=== PATIENT | female | born 1970 | race Caucasian/White ===

== ENCOUNTER 2019-05-30 21:43 | Emergency (ER) | payer SELFPAY ==
[~2019-05-30] VITALS: Ht 162.6 cm; Wt 81.6 kg
[~2019-05-30 21:43] MED LIST: ALPR0.5T6 PO; CALCIUM; CHOL10003 PO; CYCL10TA2 PO; FENT1PAT13 TD; FLUO10CA7 PO; LORA10TA3 PO; NAPR500T8 PO; OMEG1CAP6 PO; TIOT18CA IH; TRAM50TA PO; VARE1TAB5 PO; VITAMIN D; cetirizine; cholestoff; lexapro; naproxen
[2019-05-30 22:15] VITALS: BP 112/68
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
[2019-05-30] MEDS ORDERED: HYDR-3164 PO (23:40)
[2019-05-30] MEDS ORDERED: ORPH100T PO (23:40)
--- NOTE | 2019-05-30 23:43 | RAD ---
Three-view left shoulder radiographs 05/30/2019 CLINICAL HISTORY: Injury to the left shoulder post fall. AP internal and external rotation and transscapular digital radiographs left shoulder were obtained. No fracture or dislocation of the left shoulder is seen. Mild degenerative changes are seen involving the left AC joint and left glenohumeral joint. IMPRESSION: No fracture or dislocation of the left shoulder is seen. Electronically signed by: Rudy James MD (05/30/2019 11:40 PM) [facility] [id number]
--- NOTE | 2019-05-30 23:50 | RAD ---
Bilateral rib series to include a PA chest radiograph 05/30/2019 CLINICAL HISTORY: Fall with chest and rib pain. A PA digital radiograph of the chest was obtained. 2 AP and 2 oblique digital radiographs of both ribs were obtained. Comparison is made to a CT scan of the chest dated 01/01/2015. The cardiac silhouette is mildly enlarged. The thoracic aorta is minimally tortuous. No acute pulmonary infiltrate is seen. No pleural effusion or pneumothorax is noted No right-sided rib fracture is seen. Acute fractures of the anterolateral aspect of the left seventh and eighth ribs are seen. IMPRESSION: Acute fractures of the anterolateral aspect of the left seventh and eighth ribs. No pneumothorax is seen. Electronically signed by: Rudy James MD (05/30/2019 11:47 PM) [facility]
== END 2019-05-30 23:50 | disposition home or self-care (01) ==
LOC: ER 21:43
DX: R07.81 Pleurodynia (principal); M25.512 Pain in left shoulder; M19.90 Unspecified osteoarthritis, unspecified site; F32.9 Major depressive disorder, single episode, unspecified; Z98.890 Other specified postprocedural states; Z90.710 Acquired absence of both cervix and uterus; W18.39XA Other fall on same level, initial encounter; Y93.89 Activity, other specified; Y92.89 Other specified places as the place of occurrence of the external cause; Y99.8 Other external cause status
CPT/HCPCS: 71111; 73030; 99284

== ENCOUNTER → 2019-06-10 | Outpatient (CLI) | payer OTHER ==
[2019-05-30 22:15] VITALS: BP 112/68
[~2019-06-10] MED LIST changes: +HYDR-3164 PO; +ORPH100T PO
--- NOTE | 2019-06-10 17:15 | RAD ---
LEFT LEG VENOUS DOPPLER STUDY: Clinical indications: Left leg swelling and pain. Findings: Duplex sonography (including olvera scale evaluation and color flow and waveform spectral analysis) of the proximal aspect of the greater saphenous vein and the proximal aspect of the profunda femoral vein and the entire length of the common femoral and superficial femoral and popliteal veins and the tibioperoneal trunk and the proximal aspect of the posterior tibial and peroneal veins of the left leg was performed. Normal compressibility, augmentation of color Doppler flow after calf compression, and respiratory variation of Doppler flow is seen. Thus, there are no sonographic findings of deep venous thrombosis within these veins. Impression: There are no sonographic findings of deep venous thrombosis within the veins discussed above of the left lower extremity. RIGHT LEG VENOUS DOPPLER STUDY: Clinical indications: Right leg swelling and pain. Findings: Duplex sonography (including olvera scale evaluation and color flow and waveform spectral analysis) of the proximal aspect of the greater saphenous vein and proximal aspect of the profunda femoral vein and the entire length of the common femoral and superficial femoral and popliteal veins and the tibioperoneal trunk and the proximal aspect of the posterior tibial and peroneal veins of the right leg was performed. Normal compressibility, augmentation of color Doppler flow after calf compression, and respiratory variation of Doppler flow is seen. Thus, there are no sonographic findings of deep venous thrombosis within these veins. Impression: There are no sonographic findings of deep venous thrombosis within the veins discussed above of the right lower extremity. Electronically signed by: Anthony Freitas MD (06/10/2019 5:12 PM) [facility]
== END | disposition home or self-care (01) ==
LOC: US 16:15
PROVIDERS: ATTEND Family Medicine
DX: M79.89 Other specified soft tissue disorders (principal)
CPT/HCPCS: 93970

== ENCOUNTER 2019-07-02 14:46 | Inpatient (IN) | payer OTHER ==
[~2019-07-02] VITALS: Ht 162.6 cm; Wt 80.3 kg
[2019-07-02 15:00] VITALS: BP 131/71
[2019-07-02] MEDS ORDERED: NAPR-514 PO (16:25)
[2019-07-02 16:43] LABS: HEMATOCRIT 39.4 % (36.0-47.0); HEMOGLOBIN 12.3 g/dL (12.0-15.5); RED BLOOD COUNT 5.38 x10^6/uL (3.50-5.40); WHITE BLOOD COUNT 8.8 x10^3/uL (4.0-11.0)
[2019-07-02 16:58] LABS: CALCIUM 9.2 mg/dL (8.5-10.1); CREATININE 0.8 mg/dL (0.6-1.0); GFR 75.9; MAGNESIUM 1.9 mg/dL (1.8-2.4); POTASSIUM 4.2 mmol/L (3.5-5.1)
[2019-07-02] MEDS ORDERED: FUROSEMIDE 40 MG/4 ML VIAL. IVP ONE (17:15)
--- NOTE | 2019-07-02 17:23 | PDOC ---
STEWART IRIZARRY DIRECTOR OF FRONT OFFICE 07/02/19 1723: CARDIO Progress Notes Date and Time Date of Service 07/02/19 Time of Evaluation 1700 Subjective Subjective: Other (cough, LE edema. SOA comes and goes ) Vitals Vitals Vital Signs Date Time Temp Pulse Resp B/P (MAP) Pulse Ox O2 Delivery O2 Flow Rate FiO2 07/02/19 15:00 98.8 102 18 131/71 (91) 90 Room Air 98.8 Weight Weight [ ] Laboratory Labs Laboratory Tests Test 07/02/19 16:30 White Blood Count 8.8 x10^3/uL (4.0-11.0) Red Blood Count 5.38 x10^6/uL (3.50-5.40) Hemoglobin 12.3 g/dL (12.0-15.5) Hematocrit 39.4 % (36.0-47.0) Mean Corpuscular Volume 73 fL (79-100) Mean Corpuscular Hemoglobin 23 pg (25-35) Mean Corpuscular Hemoglobin Concent 31 g/dL (31-37) Red Cell Distribution Width 19.0 % (11.5-14.5) Platelet Count 207 x10^3/uL (140-400) Sodium Level 145 mmol/L (136-145) Potassium Level 4.2 mmol/L (3.5-5.1) Chloride Level 103 mmol/L (98-107) Carbon Dioxide Level 33 mmol/L (21-32) Anion Gap 9 (6-14) Blood Urea Nitrogen 19 mg/dL (7-20) Creatinine 0.8 mg/dL (0.6-1.0) Estimated GFR (Cockcroft-Gault) 75.9 Glucose Level 101 mg/dL (70-99) Calcium Level 9.2 mg/dL (8.5-10.1) Magnesium Level 1.9 mg/dL (1.8-2.4) Troponin I Quantitative 0.018 ng/mL (0.000-0.055) Physical Exam HEENT: Neck Supple W Full Motion Chest: Symmetric LUNGS: Clear to Auscultation Heart: S1S2, RRR, murmurs (2/6 systolic murmur ) Abdomen: Soft N/T Extremities: Other (1-2+ bilateral LE edema. Mild bilateral LE erythema) Neurology: alert, oriented, follow commands Assessment Assessment Reason for consult: CHF HPI: This is a 48 yo female who was seen in our [place] office by Dr. Weems yesterday with complaints of LE edema. Please seen office note in physical maryam for full details. Has been experiencing worsening exertional dyspnea and chest pressure over the last several weeks. Has also has worsening LE edema, that has not improved significantly improved with diuretic therapy. Hospitalization with aggressive management with right and left heart catheterization and pulmonary evaluation versus outpatient management with di uretics and echocardiogram was discussed. Patient opted to be admitted to the hospital today for aggressive diuresis, echocardiogram, and right and left heart cath for further evaluation of symptoms. Assessment 1. Acute on chronic probable diastolic HF 2. Chest pressure, exertional dyspnea. ? CAD component 3. Hypertension 4. Hyperlipidemia 5. Tobaccoism; discussed/encouraged cessation Recommendations Diuresis Echo to assess LV systolic function Routine labs; CBC, BMP, lipids, coags CXR EKG R and L heart cath in am. R/b/a discussed and patient is agreeable. NPO p MN NICOLLE WEEMS MD 07/02/19 2204: CARDIO Progress Notes Plan Plan Pt. seen and examined. Agree with above PRESSURE STEAMER TENDER note. Admitted for acute on chronic presumed diastolic HF with unstable angina. STEWART IRIZARRY APRN Jul 02, 2019 17:23 NICOLLE WEEMS MD Jul 02, 2019 22:04
--- NOTE | 2019-07-02 17:39 | RAD ---
PORTABLE CHEST 1V Clinical indications: Shortness of breath. COMPARISON: May 30, 2019. Findings: Chronic elevation of the right hemidiaphragm is seen. Mild chronic interstitial lung disease is seen bilaterally which is stable. No new lung infiltrate or pleural effusion or pneumothorax is evident. The heart size is prominent but stable. The mediastinum is unchanged. Prominent central pulmonary vasculature is seen especially involving the right infrahilar region which may be due to chronic arterial pulmonary hypertension. This is stable. IMPRESSION: Stable chest x-ray. Electronically signed by: Anthony Freitas MD (07/02/2019 5:37 PM) [id number]
[2019-07-02 18:00] LABS: PROTHROMBIN TIME PATIENT 12.7 SEC (11.7-14.0)
--- NOTE | 2019-07-02 18:04 | EKG ---
[facility] [address] [place] [address] Test Date: 2019-07-02 Test Time: 18:59:25 Pat Name: GAYATRI ESPINOZA Department: Room: 244 Gender: F Tenant Relations Coordinator: : 1970 Requested By: STEWART IRIZARRY Order Number: [id number] Reading MD: Raghavendra Weems MD Measurements Intervals [place] Rate: 99 P: 62 UT: 164 QRS: 84 QRSD: 90 T: 23 QT: 356 QTc: 462 Interpretive Statements SINUS RHYTHM NON-SPECIFIC ST/T CHANGES Electronically Signed On 07-14-2019 14:05:41 CDT by Raghavendra Weems MD
[2019-07-02 19:18] VITALS: BP 151/78
--- NOTE | 2019-07-02 20:32 | HP ---
ADMIT DATE: 07/02/2019 CHIEF COMPLAINT: Shortness of breath and edema. HISTORY OF PRESENT ILLNESS: The patient is a pleasant middle-aged female who smokes too much. She has never had any cardiac problems that she is aware of, but now she presents with signs of heart failure. She is short of breath. She has got swelling, she has got associated cough that has been worsening for the past few weeks. Her chest x-ray shows some vascular congestion. Her BNP level was a little high at 776. I discussed the case with the ER physician. We are going to admit the patient with heart failure and consult Cardiology. PAST MEDICAL HISTORY: Tobacco abuse, allergic rhinitis, asthma, muscle spasms, arthritis, chronic pain, depression, anxiety. ALLERGIES: None. FAMILY HISTORY: Hypertension. SOCIAL HISTORY: She smokes. No drink or drugs. She works at the [employer]. MEDICATIONS: Reviewed, please refer to the MRAD. REVIEW OF SYSTEMS: GENERAL: No history of weight change, weakness or fevers. SKIN: No bruising, hair changes or rashes. EYES: No blurred, double or loss of vision. NOSE AND THROAT: No history of nosebleeds, hoarseness or sore throat. HEART: No history of palpitations, chest pain or shortness of breath on exertion. LUNGS: She complains of shortness of breath. GASTROINTESTINAL: Denies changes in appetite, nausea, vomiting, diarrhea or constipation. GENITOURINARY: No history of frequency, urgency, hesitancy or nocturia. NEUROLOGIC: Denies history of numbness, tingling, tremor or weakness. PSYCHIATRIC: No history of panic, anxiety or depression. ENDOCRINE: No history of heat or cold intolerance, polyuria or polydipsia. EXTREMITIES: She complains of edema. PHYSICAL EXAMINATION: VITALS: Within normal limits and are stable. GENERAL: No apparent distress. Alert and oriented. HEENT: Head is normocephalic, atraumatic, pupils were equally round and reactive to light and accommodation. NECK: Supple, no JVD, no thyromegaly was noted. LUNGS: She has decreased breath sounds. HEART: RRR, S1, S2 present. Peripheral pulses intact, no obvious murmurs were noted. ABDOMEN: Soft, nontender. Positive bowel sounds no organomegaly, normal bowel sounds. EXTREMITIES: She has 1+ edema. NEUROLOGIC: Normal speech, normal tone. A & O x3, moves all extremities, no obvious focal deficits. PSYCHIATRIC: Normal affect, normal mood. Stable. SKIN: No ulcerations or rashes, good skin turgor, no jaundice. VASCULAR: Good capillary refill, neurovascular bundle appears to be intact. LABORATORY DATA: Normal. Electrolytes are normal. Troponin is 0.018. BNP 776. Chest x-ray shows some vascular congestion. ASSESSMENT AND PLAN: Acute on chronic systolic and diastolic heart failure. The patient is being admitted. We will consult Cardiology. IV Lasix, cardiac monitoring, serial enzymes, serial EKGs, echocardiogram, DVT prophylaxis. Full code. PROGNOSIS: Guarded. MARTINEZ CORDOBA DO DR: MAU/geri JOB#: [id number] / [id number]
[2019-07-02] MEDS ORDERED: HYDROcodone/APAP 5/325MG 1 TAB TABLET PO PRN (20:45)
[2019-07-02] MEDS ORDERED: traMADol 50 MG TABLET PO PRN (20:45)
[2019-07-02] MEDS ORDERED: NAPROXEN 500 MG TABLET PO SCH (21:00)
[2019-07-02] MEDS ORDERED: NON FORMULARY ITEM (Naproxen 1 TAB) PO SCH (21:00)
[2019-07-02] MEDS: quiNINE 324 MG CAPSULE. PO PRN (21:56)
[2019-07-02] MEDS: CYCLOBENZAPRINE 10 MG TABLET. PO SCH (21:56)
[2019-07-02 23:09] VITALS: BP_SYST 118; BP_SYST 129; BP_DIAS 55; BP_DIAS 69
[2019-07-03] VITALS (19 sets, daily range): BP systolic 94–154; BP diastolic 47–90
--- NOTE | 2019-07-03 02:58 | NUR ---
O2ATS ON ROOM AIR 57%. TRIED SEVERAL DIFFERENT MONITORS. PLACED ON 4 LITERS NC TO GET HER TO 94% DECREASED TO 3 LITERS SATS ARE 91-92%. GOT HER TO COUGH, DRY HACKY COUGH. LCRN
[2019-07-03 04:33] LABS: HEMATOCRIT 38.9 % (36.0-47.0); HEMOGLOBIN 11.7 g/dL (12.0-15.5); RED BLOOD COUNT 5.25 x10^6/uL (3.50-5.40); RED CELL DISTRIBUTION WIDTH 19.5 % (11.5-14.5)
[2019-07-03 04:55] LABS: CALCIUM 8.7 mg/dL (8.5-10.1); CREATININE 0.7 mg/dL (0.6-1.0); GFR 88.6; POTASSIUM 3.9 mmol/L (3.5-5.1)
[2019-07-03 04:56] LABS: CHOLESTEROL/HDL RATIO 4.7
[2019-07-03] MEDS ORDERED: HEPARIN for ARTERIAL LINE 1,500 ML ONE (07:35)
[2019-07-03] MEDS ORDERED: IODIXANOL 320 MG/ML 100 ML VIAL. ONE (07:35)
[2019-07-03] MEDS ORDERED: LIDOCAINE 1% PF 2 ML VIAL. ONE (07:51)
[2019-07-03] MEDS ORDERED: OMEGA-3 FATTY ACIDS/FISH OIL 1,000 MG CAPSULE. PO ONE (09:00)
[2019-07-03] MEDS ORDERED: OMEGA-3 FATTY ACIDS/FISH OIL 1,000 MG CAPSULE. PO SCH (09:00)
[2019-07-03] MEDS ORDERED: MIDAZOLAM HCL/PF 2 MG/2 ML VIAL. ONE (09:20)
[2019-07-03] MEDS ORDERED: HEPARIN for IV BOLUS 10,000 UNIT/10 ML VIAL. ONE (09:20)
[2019-07-03] MEDS ORDERED: fentaNYL PF VIAL 100 MCG/2 ML VIAL ONE (09:20)
[2019-07-03] MEDS ORDERED: VERAPAMIL 5 MG/2 ML VIAL. ONE (09:43)
[2019-07-03] MEDS ORDERED: LIDOCAINE 1% Multi-Dose 20 ML VIAL. ONE (09:54)
[2019-07-03 10:07] LABS: BASE EXCESS ABG 4 mmol/L (-3-3); HCO3 ABG 33 mmol/L (21-28); PO2 ABG 68 mmHg (75-108); SAT O2 ABG 90 % (92-99)
[2019-07-03 10:17] LABS: PCO2 ABG 75 mmHg (35-46)
[2019-07-03] MEDS ORDERED: HEPARIN for IV BOLUS 10,000 UNIT/10 ML VIAL. IART ONE (10:30)
[2019-07-03] MEDS ORDERED: MIDAZOLAM HCL/PF 2 MG/2 ML VIAL. IV ONE (10:30)
[2019-07-03] MEDS ORDERED: fentaNYL PF VIAL 100 MCG/2 ML VIAL IV ONE (10:30)
[2019-07-03] MEDS ORDERED: NITROGLYCERIN 200 MCG/2 ML SYRINGE FOR CATH/VASC LAB. IART ONE (10:30)
[2019-07-03] MEDS ORDERED: VERAPAMIL 5 MG/2 ML VIAL. IART ONE (10:30)
[2019-07-03] MEDS ORDERED: LIDOCAINE 1% Multi-Dose 20 ML VIAL. INJ ONE (10:30)
[2019-07-03] MEDS ORDERED: IODIXANOL 320 MG/ML 100 ML VIAL. IART ONE (10:30)
[2019-07-03] MEDS: ASPIRIN ENTERIC COATED 81 MG TABLET.DR. PO SCH (10:55)
[2019-07-03] MEDS: FLUoxetine HCL 10 MG CAPSULE PO SCH (10:55)
[2019-07-03] MEDS: CHOLECALCIFEROL (VITAMIN D3) 1,000 UNIT TABLET PO SCH (10:55)
[2019-07-03] MEDS: CYCLOBENZAPRINE 10 MG TABLET. PO SCH ×3 (10:55→20:22)
--- NOTE | 2019-07-03 11:03 | PDOC ---
[employer] PROGRESS NOTE Chief Complaint Chief Complaint Heart failure w/ unstable angina. History of Present Illness History of Present Illness 07/03/19 Pt seen and examined at bedside with nasal canula Pt was pleasant Pt is scheduled for a L and R heart cath today Charts and labs reviewed ABG pH is 7.27 D/w RN Vitals/I&O Vitals/I&O: Vital Signs Date Time Temp Pulse Resp B/P (MAP) Pulse Ox O2 Delivery O2 Flow Rate FiO2 07/03/19 10:30 14 90 Nasal Cannula 4.0 07/03/19 10:30 80 119/63 07/03/19 07:00 97.4 97.4 I & O 07/02/19 07/02/19 07/03/19 14:59 22:59 06:59 Intake Total 600 ml Output Total 950 ml 450 ml Balance -950 ml 150 ml Physical Exam General: Alert, Oriented X3, Cooperative Lungs: Clear Extremities: No clubbing, No cyanosis, Normal pulses Skin: No rashes, No breakdown Labs Labs: Laboratory Tests Test 07/02/19 16:30 07/02/19 22:00 07/03/19 04:18 07/03/19 10:10 White Blood Count 8.8 x10^3/uL (4.0-11.0) 9.0 x10^3/uL (4.0-11.0) Red Blood Count 5.38 x10^6/uL (3.50-5.40) 5.25 x10^6/uL (3.50-5.40) Hemoglobin 12.3 g/dL (12.0-15.5) 11.7 g/dL (12.0-15.5) Hematocrit 39.4 % (36.0-47.0) 38.9 % (36.0-47.0) Mean Corpuscular Volume 73 fL (79-100) 74 fL (79-100) Mean Corpuscular Hemoglobin 23 pg (25-35) 22 pg (25-35) Mean Corpuscular Hemoglobin Concent 31 g/dL (31-37) 30 g/dL (31-37) Red Cell Distribution Width 19.0 % (11.5-14.5) 19.5 % (11.5-14.5) Platelet Count 207 x10^3/uL (140-400) 189 x10^3/uL (140-400) Prothrombin Time 12.7 SEC (11.7-14.0) Prothromb Time International Ratio 1.0 (0.8-1.1) Sodium Level 145 mmol/L (136-145) 143 mmol/L (136-145) Potassium Level 4.2 mmol/L (3.5-5.1) 3.9 mmol/L (3.5-5.1) Chloride Level 103 mmol/L (98-107) 105 mmol/L (98-107) Carbon Dioxide Level 33 mmol/L (21-32) 33 mmol/L (21-32) Anion Gap 9 (6-14) 5 (6-14) Blood Urea Nitrogen 19 mg/dL (7-20) 18 mg/dL (7-20) Creatinine 0.8 mg/dL (0.6-1.0) 0.7 mg/dL (0.6-1.0) Estimated GFR (Cockcroft-Gault) 75.9 88.6 Glucose Level 101 mg/dL (70-99) 106 mg/dL (70-99) Calcium Level 9.2 mg/dL (8.5-10.1) 8.7 mg/dL (8.5-10.1) Magnesium Level 1.9 mg/dL (1.8-2.4) Troponin I Quantitative 0.018 ng/mL (0.000-0.055) 0.021 ng/mL (0.000-0.055) KK-Cgy-[id number]-Type Natriuretic Peptide 776 pg/mL (0-124) Triglycerides Level 120 mg/dL (0-150) Cholesterol Level 146 mg/dL (0-200) LDL Cholesterol, Calculated 91 mg/dL (0-100) VLDL Cholesterol, Calculated 24 mg/dL (0-40) Non-HDL Cholesterol Calculated 115 mg/dL (0-129) HDL Cholesterol 31 mg/dL (40-60) Cholesterol/HDL Ratio 4.7 O2 Saturation 90 % (92-99) Arterial Blood pH 7.27 (7.35-7.45) Arterial Blood pCO2 at Patient Temp 75 mmHg (35-46) Arterial Blood pO2 at Patient Temp 68 mmHg (75-108) Arterial Blood HCO3 33 mmol/L (21-28) Arterial Blood Base Excess 4 mmol/L (-3-3) Review of Systems Review of Systems: Pt denies fever Pt denies numbness and tingling Assessment and Plan Assessmemt and Plan Assessment Acute on chronic systolic and diastolic heart failure. Unstable angina Dyslipidemia Plan Cardiac monitoring Post-cath wound care Diuresis Serial EKG Serial labs Await further input from Cardiology Full code Comment Review of Relevant I have reviewed the following items don (where applicable) has been applied. Medications: Current Medications Medications (Trade) Dose Ordered Sig/Cata Route PRN Reason Start Time Stop Time Status Last Admin Dose Admin Furosemide (Lasix) 40 mg 1X ONCE IVP 07/02/19 17:15 07/02/19 17:16 DC 07/02/19 18:23 Cyclobenzaprine HCl (Flexeril) 10 mg TID PO 07/02/19 21:00 07/02/19 21:56 Naproxen (Naprosyn) 500 mg BID PO 07/02/19 21:00 07/03/19 07:54 DC 07/02/19 21:55 Quinine Sulfate (Qualaquin) 324 mg PRN QHS PRN PO LEG CRAMPS 07/02/19 20:45 07/02/19 21:56 Verapamil HCl (Verapamil) 2.5 mg 1X ONCE IART 07/03/19 10:30 07/03/19 10:37 DC 07/03/19 10:30 Heparin Sodium (Porcine) (Heparin Sodium) 2,500 unit 1X ONCE IART 07/03/19 10:30 07/03/19 10:37 DC 07/03/19 10:30 Heparin Sodium/ Sodium Chloride (HEPARIN for ARTERIAL LINE FLUSH) 1,000 unit 1X ONCE IART 07/03/19 10:30 07/03/19 10:37 DC 07/03/19 10:30 Midazolam HCl (Versed) 1 mg 1X ONCE IV 07/03/19 10:30 07/03/19 10:37 DC 07/03/19 10:30 Fentanyl Citrate (Fentanyl 2ml Vial) 25 mcg 1X ONCE IV 07/03/19 10:30 07/03/19 10:37 DC 07/03/19 10:30 Iodixanol (Visipaque 320) 72 ml 1X ONCE IART 07/03/19 10:30 07/03/19 10:37 DC 07/03/19 10:30 Lidocaine HCl (Lidocaine 1% 20ml Vial) 7 ml 1X ONCE INJ 07/03/19 10:30 07/03/19 10:37 DC 07/03/19 10:30 MARTINEZ CORDOBA III DO Jul 03, 2019 11:03
--- NOTE | 2019-07-03 12:27 | NUR ---
SS reviewed pt chart. Pt is from home and is currently requiring oxygen. SS will continue to follow for discharge planning.
[2019-07-03] MEDS: IPRATRPIUM/ALBUTEROL 0.5/2.5MG 3 ML NEBU. NEB SCH ×3 (13:04→20:06)
--- NOTE | 2019-07-03 13:10 | CONS ---
DATE OF CONSULTATION: PULMONARY CONSULTATION ATTENDING PHYSICIAN: Padmini Melara DO REASON FOR CONSULTATION: Respiratory failure. HISTORY OF PRESENT ILLNESS: The patient is a 48-year-old female who has been a smoker for about 30 years. She presented to the hospital with complaint of shortness of breath for the last 3 days. She had no significant cough. No fever and no chills. She has fallen about 4 weeks ago and had some left rib fractures and she was complaining of pain on the left side. She was seen in the Emergency Room. Her proBNP was 776. Chest x-ray showed mildly prominent interstitial markings. She was taken to the [facility] and Dr. Weems called me with abnormal ABGs with a pH of 7.27 with a pCO2 of 75 and pO2 of 68. This was on high flow oxygen. Her preliminary cardiac catheterization findings suggested that she had a normal pulmonary capillary wedge pressure of 12. Her pulmonary artery systolic pressure was 50. I had ordered the respiratory therapist to place her on BiPAP. She appears to be comfortable on BiPAP. She nods yes and no to many questions and answers most of the history. She has a history of daytime somnolence, but never been tested for sleep apnea. Never had a DVT or pulmonary embolism. The patient has lower extremity edema recently as well. PAST MEDICAL HISTORY: Significant for history of tobacco use, suspect underlying chronic obstructive pulmonary disease. Smoked for 35 years, history of allergic rhinitis, history of muscle spasm, arthritis, chronic back pain, depression, anxiety, and suspected BERNIE, never had formal sleep study. PAST SURGICAL HISTORY: No recent cardiac catheterization. FAMILY HISTORY: Hypertension. SOCIAL HISTORY: Smoked for 35 years. Just quit before coming to the hospital. ALLERGIES: None. MEDICATIONS: Reviewed as listed in the MRAD. REVIEW OF SYSTEMS: Ten-point system obtained. Pertinent positives discussed in my history of present illness, otherwise noncontributory. All systems that were negative were reviewed as well. PHYSICAL EXAMINATION: VITAL SIGNS: Reviewed. Blood pressure stable and pulse ox 99% on 35% FiO2 with BiPAP. HEENT: Sclerae are nonicteric. NECK: Supple. LUNGS: With diminished breath sounds at the bases. CARDIOVASCULAR: With regular rate. ABDOMEN: Soft and obese. EXTREMITIES: With 1+ pitting edema. LABORATORY DATA: Reviewed. ABG discussed in my history of present illness. White cell count 9.0, hemoglobin 11.7, and platelets are 189. BUN is 18 and a creatinine 0.7. IMPRESSION: 1. Uigaj-sv-rgmwygk hypoxic and hypercapnic respiratory failure secondary to multifactorial etiologies including a combination of mild right heart failure, underlying chronic obstructive pulmonary disease and pulmonary hypertension. 2. Normal pulmonary capillary wedge pressure of 12 on recent cardiac catheterization with a pulmonary artery pressure of 50. We will await for the full report and also an echo to assess for EF. 3. Suspect underlying chronic obstructive pulmonary disease. Smoked for 35 years. 4. Pulmonary hypertension, moderate, suspect secondary to underlying chronic obstructive pulmonary disease and obstructive sleep apnea. However, will need a further workup by doing a CT chest to rule out any thromboembolic disease as well as rule out any interstitial lung disease. RECOMMENDATIONS: 1. Continue with present BiPAP. Follow ABGs and make necessary adjustments. 2. Once she is off the BiPAP, then we will do workup for pulmonary hypertension. We will do a CT angiogram and also full PFTs. 3. She will benefit from sleep study as an outpatient. 4. Bronchodilators. 5. Smoking cessation counseling provided. 6. Diuresis. 7. Discussed with the patient's family. Discussed with RT. We will follow along with you. Critical care time 35 minutes. CINTHYA JOHNSON MD DR: DEYANIRA/geri JOB#: [id number] / [id number]
[2019-07-03 14:29] LABS: BASE EXCESS ABG 5 mmol/L (-3-3); HCO3 ABG 33 mmol/L (21-28); PO2 ABG 67 mmHg (75-108); SAT O2 ABG 91 % (92-99)
[2019-07-03 14:30] LABS: PCO2 ABG 67 mmHg (35-46)
[2019-07-03 14:31] LABS: FIO2 ABG 40
[2019-07-03] MEDS: ALPRAZolam 0.5 MG TABLET PO PRN (16:17)
[2019-07-04 03:54] VITALS: BP 101/57
[2019-07-04 05:46] LABS: BASO % 0 % (0-3); EOS # 0.2 x10^3/uL (0.0-0.7); EOS % 3 % (0-3); HEMATOCRIT 38.6 % (36.0-47.0); HEMOGLOBIN 11.6 g/dL (12.0-15.5); LYMPH # 1.7 x10^3/uL (1.0-4.8); LYMPH % 25 % (24-48); MEAN CORPUSCULAR HEMOGLOBIN 22 pg (25-35); MEAN CORPUSCULAR HGB CONC 30 g/dL (31-37); MEAN CORPUSCULAR VOLUME 74 fL (79-100); MONO # 0.5 x10^3/uL (0.0-1.1); MONO % 7 % (0-9); NEUT # 4.4 x10^3/uL (1.8-7.7); NEUT % 64 % (31-73); PLATELET COUNT 167 x10^3/uL (140-400); RED BLOOD COUNT 5.21 x10^6/uL (3.50-5.40); RED CELL DISTRIBUTION WIDTH 19.5 % (11.5-14.5); WHITE BLOOD COUNT 6.8 x10^3/uL (4.0-11.0)
[2019-07-04 06:00] LABS: ALBUMIN 3.1 g/dL (3.4-5.0); ALBUMIN/GLOBULIN RATIO 0.8 (1.0-1.7); CALCIUM 8.9 mg/dL (8.5-10.1); CREATININE 0.7 mg/dL (0.6-1.0); GFR 88.6; POTASSIUM 4.1 mmol/L (3.5-5.1); TOTAL BILIRUBIN 0.7 mg/dL (0.2-1.0)
[2019-07-04 07:00] VITALS: BP 99/58
[2019-07-04] MEDS: IPRATRPIUM/ALBUTEROL 0.5/2.5MG 3 ML NEBU. NEB SCH ×4 (08:36→20:14)
[2019-07-04 10:49] VITALS: BP 98/56
[2019-07-04] MEDS: FLUoxetine HCL 10 MG CAPSULE PO SCH (11:06)
[2019-07-04] MEDS: OMEGA-3 FATTY ACIDS/FISH OIL 1,000 MG CAPSULE. PO SCH (11:06)
[2019-07-04] MEDS: CYCLOBENZAPRINE 10 MG TABLET. PO SCH ×3 (11:06→20:38)
[2019-07-04] MEDS: ASPIRIN ENTERIC COATED 81 MG TABLET.DR. PO SCH (11:07)
[2019-07-04] MEDS: CHOLECALCIFEROL (VITAMIN D3) 1,000 UNIT TABLET PO SCH (11:07)
[2019-07-04 11:09] LABS: BASE EXCESS ABG 5 mmol/L (-3-3); HCO3 ABG 32 mmol/L (21-28); PCO2 ABG 56 mmHg (35-46); PO2 ABG 72 mmHg (75-108); SAT O2 ABG 94 % (92-99)
[2019-07-04 11:16] LABS: FIO2 ABG 35
[2019-07-04] MEDS ORDERED: IOHEXOL 350 MG/ML 100 ML VIAL. IV ONE (11:30)
[2019-07-04] MEDS ORDERED: CONTRAST GIVEN. MC PRN (11:30)
--- NOTE | 2019-07-04 11:32 | PDOC ---
[facility] PROGRESS NOTE Chief Complaint Chief Complaint Heart failure w/ unstable angina. History of Present Illness History of Present Illness 07/04/19 Pt seen and examined at bedside Was eating meal DW with RN Pt will be wearing BIPAP 24 hours a day and 7 days a week unless she is having a meal. Discussed smoking cessation. ABG pCO2 was 56 07/03/19 Pt seen and examined at bedside with nasal canula Pt was pleasant Pt is scheduled for a L and R heart cath today Charts and labs reviewed ABG pH is 7.27 D/w RN Vitals/I&O Vitals/I&O: Vital Signs Date Time Temp Pulse Resp B/P (MAP) Pulse Ox O2 Delivery O2 Flow Rate FiO2 07/04/19 10:49 97.4 84 20 98/56 (70) 96 BiPAP/CPAP 97.4 07/03/19 11:00 3.0 I & O 07/03/19 07/03/19 07/04/19 14:59 22:59 06:59 Intake Total 0 ml 400 ml Output Total 750 ml Balance -750 ml 400 ml Physical Exam General: Alert, Oriented X3, Cooperative Lungs: Clear, Other (Harsh cough) Extremities: No clubbing, No cyanosis, Normal pulses Skin: No rashes, No breakdown Labs Labs: Laboratory Tests Test 07/03/19 14:00 07/04/19 03:00 07/04/19 05:00 07/04/19 11:00 O2 Saturation 91 % (92-99) 94 % (92-99) Arterial Blood pH 7.31 (7.35-7.45) 7.37 (7.35-7.45) Arterial Blood pCO2 at Patient Temp 67 mmHg (35-46) 56 mmHg (35-46) Arterial Blood pO2 at Patient Temp 67 mmHg (75-108) 72 mmHg (75-108) Arterial Blood HCO3 33 mmol/L (21-28) 32 mmol/L (21-28) Arterial Blood Base Excess 5 mmol/L (-3-3) 5 mmol/L (-3-3) FiO2 40 35 Sodium Level 144 mmol/L (136-145) Potassium Level 4.1 mmol/L (3.5-5.1) Chloride Level 103 mmol/L (98-107) Carbon Dioxide Level 35 mmol/L (21-32) Anion Gap 6 (6-14) Blood Urea Nitrogen 15 mg/dL (7-20) Creatinine 0.7 mg/dL (0.6-1.0) Estimated GFR (Cockcroft-Gault) 88.6 BUN/Creatinine Ratio 21 (6-20) Glucose Level 75 mg/dL (70-99) Calcium Level 8.9 mg/dL (8.5-10.1) Total Bilirubin 0.7 mg/dL (0.2-1.0) Aspartate Amino Transf (AST/SGOT) 16 U/L (15-37) Alanine Aminotransferase (ALT/SGPT) 17 U/L (14-59) Alkaline Phosphatase 76 U/L (46-116) Total Protein 7.0 g/dL (6.4-8.2) Albumin 3.1 g/dL (3.4-5.0) Albumin/Globulin Ratio 0.8 (1.0-1.7) White Blood Count 6.8 x10^3/uL (4.0-11.0) Red Blood Count 5.21 x10^6/uL (3.50-5.40) Hemoglobin 11.6 g/dL (12.0-15.5) Hematocrit 38.6 % (36.0-47.0) Mean Corpuscular Volume 74 fL (79-100) Mean Corpuscular Hemoglobin 22 pg (25-35) Mean Corpuscular Hemoglobin Concent 30 g/dL (31-37) Red Cell Distribution Width 19.5 % (11.5-14.5) Platelet Count 167 x10^3/uL (140-400) Neutrophils (%) (Auto) 64 % (31-73) Lymphocytes (%) (Auto) 25 % (24-48) Monocytes (%) (Auto) 7 % (0-9) Eosinophils (%) (Auto) 3 % (0-3) Basophils (%) (Auto) 0 % (0-3) Neutrophils # (Auto) 4.4 x10^3/uL (1.8-7.7) Lymphocytes # (Auto) 1.7 x10^3/uL (1.0-4.8) Monocytes # (Auto) 0.5 x10^3/uL (0.0-1.1) Eosinophils # (Auto) 0.2 x10^3/uL (0.0-0.7) Basophils # (Auto) 0.0 x10^3/uL (0.0-0.2) Review of Systems Review of Systems: No nausea, no vomiting No headache, no changes in vision Assessment and Plan Assessmemt and Plan Assessment Heart failure Unstable angina Plan Continue BIPAP as discussed Consult pulmonary for input Continue steroids DVT prophylaxis O2 by nasal cannula until O2 saturation is greater than 90% Full code Comment Review of Relevant I have reviewed the following items don (where applicable) has been applied. Medications: Current Medications Medications (Trade) Dose Ordered Sig/Cata Route PRN Reason Start Time Stop Time Status Last Admin Dose Admin Albuterol/ Ipratropium (Duoneb) 3 ml RTQID NEB 07/03/19 12:00 07/04/19 08:36 Fish Oil (Fish Oil) 1,000 mg DAILY PO 07/04/19 09:00 07/04/19 11:06 MARTINEZ CORDOBA III DO Jul 04, 2019 11:32
[2019-07-04] MEDS: NICOTINE 21MG PATCH. TD SCH (11:50)
--- NOTE | 2019-07-04 13:54 | CARD ---
MR#: [id number] Date of Study: 07/03/2019 Ordering Physician: OMAYRA ANTONY, Referring Physician: OMAYRA ANTNOY, Tech: RT An (R) DARYL APPROVED REPORT Technologist: RT An (R) DARYL Nurse: Tameka Solis RN Procedure(s) performed: Fluoro time 2.1 minutes contrast 72 cc's Visipaque dose 22.20 Gycm2 moderate sedation: 30 minutes LHC, Coronary angiography, RHC HISTORY The patient is a 48 year-old female with a history of : tobacco history() , hypertension, dyslipidemi a. INDICATION The indication(s) include : unstable angina , dyspnea. CSHA Clinical Frailty Scale CS Clinical Frailty Scale: Moderately Frail Heart Failure Heart Failure: No If Yes, Newly Diagnosed: Yes If Yes, HF Type: Diastolic If Yes, NYHA Class: Class II PROCEDURE NARRATIVE INFORMED CONSENT: After explaining the risks and benefits of the procedure and alternatives, informed consent was obtained. The patient was brought electively to the cardiac catheterization lab. A timeout was performed confi rming the patient's name, date of , procedure, and site of procedure. All necessary personnel w ere wearing the appropriate protective equipment and radiation monitor devices. (See nursing notes for medications administered). ACCESS: The right wrist was sterilely prepped and draped in the usual fashion. The right wrist was infiltrat ed with 1 mL of 2% lidocaine for subcutaneous anesthesia. A 6 Portuguese Terumo glide sheath was inserte d into the right radial artery without difficulty. CORONARY ANGIOGRAPHY: Right and left coronary angiography was performed using a 6Fr TIG 4.0 catheter. Left ventricular en d diastolic pressure was obtained with a pigtail catheter and pullback was performed after left ventr iculography. All catheter exchanges and advancements were performed over a guidewire. RHC: Due to normal LVEDP and significant dyspnea a RHC was then performed. The right neck was prepped and draped in usual sterile fashion. A 5Fr sheath was placed and through this a 5Fr PA catheter was advan alejo through the right heart chambers and pressures and saturations were obtained. FINDINGS: RA: 14 RV: 50/15 PA: 50/30 PCWP: 12 CO: Da: 8.1 L/min CLOSURE: At case completion the right radial sheath was removed and a Terumo radial band was applied with 13 m l of air. COMPLICATIONS: The patient tolerated the procedure well and there were no immediate complications. FINDINGS: HEMODYNAMICS: LVEDP 12 mm Hg No gradient on LV to aortic pullback. AO: 128/78 LEFT VENTRICULOGRAM: EF 55% Anterobasal: Normal. Anterolateral: Normal Apical: Normal Diaphragmatic: Normal Posterobasal: Normal CORONARY ANGIOGRAPHY: LM is a large caliber vessel with normal angiographic appearance. LAD is a large caliber vessel with normal angiographic appearance. D1 is a moderate caliber vessel with normal angiographic apeparance. LCx is a moderate caliber non-dominant vessel with normal angiographic appearance. OM1 is a moderate caliber vessel with normal angiographic appearance. RCA is a large caliber dominant vessel with normal angiographic appearance. RPDA and RPL are moderate caliber vessels with normal angiographic appearance. Conclusion 1. Normal left sided filling pressures. 2. Moderate pulmonary HTN with mPA of 35 mm Hg 3. Normal LV function. 4. Normal angiographic appearance of the coronary arteries. 5. Normal cardiac output. Recommendations Evaluation for non-cardiac causes of dyspnea. Signed by : Raghavendra Weems, Electronically Approved : 07/03/2019 13:36:45
--- NOTE | 2019-07-04 13:54 | CARD ---
MR#: [id number] Date of Study: 07/03/2019 Ordering Physician: MARTINEZ CORDOBA, Referring Physician: MARTINEZ CORDOBA Tech: Chasidy Syed RDCS APPROVED REPORT EXAM: Two-dimensional and M-mode echocardiogram with Doppler and color Doppler. Other Information Quality : Good INDICATION Congestive Heart Failure 2D DIMENSIONS RVDd4.6 (2.9-3.5cm)Left Atrium(2D)3.9 (1.6-4.0cm) IVSd0.8 (0.7-1.1cm)Aortic Root(2D)2.6 (2.0-3.7cm) LVDd4.5 (3.9-5.9cm)LVOT Diameter2.2 (1.8-2.4cm) PWd0.9 (0.7-1.1cm)LVDs3.4 (2.5-4.0cm) FS (%) 23.7 %SV43.3 ml LVEF(%)50.0 (>50%) Aortic Valve AoV Peak Ketan.123.0cm/sAoV VTI18.2cm AO Peak GR.6.1mmHgLVOT VTI 13.36cm AO Mean GR.3mmHgAVA (VTI)2.80cm2 Mitral Valve MV E Mohieukd902.7cm/sMV DECEL RXYV991pu MV A Gukuqhio59.4cm/sE/A Ratio1.1 TDI Lateral E' P. V7.98cm/sMedial E' P. V5.41cm/s E/Lateral E'12.7E/Medial E'18.8 Tricuspid Valve TR P. Zwosaxkz873zi/sRAP NFUJFQLY5lbXa TR Peak Gr.49jxDbMKNW12nqGr Pulmonary Vein S1 Ffaiixkh78.8cm/sS2 Ykhsszsf09.13cm/s D2 Cofptmiq78.1cm/s LEFT VENTRICLE The left ventricle is normal size. There is normal left ventricular wall thickness. Left ventricle sy stolic function is normal. The Ejection Fraction is 55%. There is a flattened interventricular septum consistent with right ventricle pressure/volume overload. Transmitral Doppler flow pattern is Grade I-abnormal relaxation pattern. RIGHT VENTRICLE The right ventricle is moderately dilated. Systolic function is mildly reduced. ATRIA The left atrium size is normal. The right atrium is mildly to moderately dilated. The interatrial sep raegan is intact with no evidence for an atrial septal defect or patent foramen ovale as noted on 2-D or Doppler imaging. AORTIC VALVE The aortic valve is normal in structure and function. Doppler and Color Flow revealed no significant aortic regurgitation. There is no significant aortic valvular stenosis. MITRAL VALVE The mitral valve is normal in structure and function. There is no evidence of mitral valve prolapse. There is no mitral valve stenosis. Doppler and Color-flow revealed mild mitral regurgitation. TRICUSPID VALVE The tricuspid valve is normal in structure and function. Doppler and Color Flow revealed mild tricusp id regurgitation. There is moderate pulmonary hypertension. The PA pressure was estimated at 40 mmHg. There is no tricuspid valve stenosis. PULMONIC VALVE The pulmonic valve is not well visualized. Doppler and Color Flow revealed trace pulmonic valvular re gurgitation. There is no pulmonic valvular stenosis. GREAT VESSELS The aortic root is normal in size. The ascending aorta is normal in size. The IVC is normal in size a nd collapses <50% with inspiration. PERICARDIAL EFFUSION There is no evidence of significant pericardial effusion. Critical Notification Critical Value: No <Conclusion> Left ventricle systolic function is normal. The Ejection Fraction is 55%. Flattened interventricular septum consistent with right ventricle pressure/volume overload. The right ventricle is moderately dilated. Mild mitral regurgitation. Mild tricuspid regurgitation. The PA pressure was estimated at 40 mmHg. There is no evidence of significant pericardial effusion. Signed by : Jaylon Sandy, Electronically Approved : 07/03/2019 12:32:13
--- NOTE | 2019-07-04 14:16 | PDOC ---
PULMONARY PROGRESS NOTES Subjective ABG improved on BIPAP Vitals Vital Signs Date Time Temp Pulse Resp B/P (MAP) Pulse Ox O2 Delivery O2 Flow Rate FiO2 07/04/19 12:31 94 Nasal Cannula 4.0 07/04/19 10:49 97.4 84 20 98/56 (70) 97.4 ROS: No Chest Pain, No Increase Cough General: Alert, No acute distress Lungs: Other (decrease bases) Cardiovascular: S1 Abdomen: Soft Neuro Exam: Alert Extremities: No Edema Skin: Warm Labs Laboratory Tests Test 07/02/19 16:30 07/02/19 22:00 07/03/19 04:18 07/03/19 10:10 White Blood Count 8.8 x10^3/uL (4.0-11.0) 9.0 x10^3/uL (4.0-11.0) Red Blood Count 5.38 x10^6/uL (3.50-5.40) 5.25 x10^6/uL (3.50-5.40) Hemoglobin 12.3 g/dL (12.0-15.5) 11.7 g/dL (12.0-15.5) Hematocrit 39.4 % (36.0-47.0) 38.9 % (36.0-47.0) Mean Corpuscular Volume 73 fL (79-100) 74 fL (79-100) Mean Corpuscular Hemoglobin 23 pg (25-35) 22 pg (25-35) Mean Corpuscular Hemoglobin Concent 31 g/dL (31-37) 30 g/dL (31-37) Red Cell Distribution Width 19.0 % (11.5-14.5) 19.5 % (11.5-14.5) Platelet Count 207 x10^3/uL (140-400) 189 x10^3/uL (140-400) Prothrombin Time 12.7 SEC (11.7-14.0) Prothromb Time International Ratio 1.0 (0.8-1.1) Sodium Level 145 mmol/L (136-145) 143 mmol/L (136-145) Potassium Level 4.2 mmol/L (3.5-5.1) 3.9 mmol/L (3.5-5.1) Chloride Level 103 mmol/L (98-107) 105 mmol/L (98-107) Carbon Dioxide Level 33 mmol/L (21-32) 33 mmol/L (21-32) Anion Gap 9 (6-14) 5 (6-14) Blood Urea Nitrogen 19 mg/dL (7-20) 18 mg/dL (7-20) Creatinine 0.8 mg/dL (0.6-1.0) 0.7 mg/dL (0.6-1.0) Estimated GFR (Cockcroft-Gault) 75.9 88.6 Glucose Level 101 mg/dL (70-99) 106 mg/dL (70-99) Calcium Level 9.2 mg/dL (8.5-10.1) 8.7 mg/dL (8.5-10.1) Magnesium Level 1.9 mg/dL (1.8-2.4) Troponin I Quantitative 0.018 ng/mL (0.000-0.055) 0.021 ng/mL (0.000-0.055) CE-Skj-B-Type Natriuretic Peptide 776 pg/mL (0-124) Triglycerides Level 120 mg/dL (0-150) Cholesterol Level 146 mg/dL (0-200) LDL Cholesterol, Calculated 91 mg/dL (0-100) VLDL Cholesterol, Calculated 24 mg/dL (0-40) Non-HDL Cholesterol Calculated 115 mg/dL (0-129) HDL Cholesterol 31 mg/dL (40-60) Cholesterol/HDL Ratio 4.7 O2 Saturation 90 % (92-99) Arterial Blood pH 7.27 (7.35-7.45) Arterial Blood pCO2 at Patient Temp 75 mmHg (35-46) Arterial Blood pO2 at Patient Temp 68 mmHg (75-108) Arterial Blood HCO3 33 mmol/L (21-28) Arterial Blood Base Excess 4 mmol/L (-3-3) Test 07/03/19 14:00 07/04/19 03:00 07/04/19 05:00 07/04/19 11:00 O2 Saturation 91 % (92-99) 94 % (92-99) Arterial Blood pH 7.31 (7.35-7.45) 7.37 (7.35-7.45) Arterial Blood pCO2 at Patient Temp 67 mmHg (35-46) 56 mmHg (35-46) Arterial Blood pO2 at Patient Temp 67 mmHg (75-108) 72 mmHg (75-108) Arterial Blood HCO3 33 mmol/L (21-28) 32 mmol/L (21-28) Arterial Blood Base Excess 5 mmol/L (-3-3) 5 mmol/L (-3-3) FiO2 40 35 Sodium Level 144 mmol/L (136-145) Potassium Level 4.1 mmol/L (3.5-5.1) Chloride Level 103 mmol/L (98-107) Carbon Dioxide Level 35 mmol/L (21-32) Anion Gap 6 (6-14) Blood Urea Nitrogen 15 mg/dL (7-20) Creatinine 0.7 mg/dL (0.6-1.0) Estimated GFR (Cockcroft-Gault) 88.6 BUN/Creatinine Ratio 21 (6-20) Glucose Level 75 mg/dL (70-99) Calcium Level 8.9 mg/dL (8.5-10.1) Total Bilirubin 0.7 mg/dL (0.2-1.0) Aspartate Amino Transf (AST/SGOT) 16 U/L (15-37) Alanine Aminotransferase (ALT/SGPT) 17 U/L (14-59) Alkaline Phosphatase 76 U/L (46-116) Total Protein 7.0 g/dL (6.4-8.2) Albumin 3.1 g/dL (3.4-5.0) Albumin/Globulin Ratio 0.8 (1.0-1.7) White Blood Count 6.8 x10^3/uL (4.0-11.0) Red Blood Count 5.21 x10^6/uL (3.50-5.40) Hemoglobin 11.6 g/dL (12.0-15.5) Hematocrit 38.6 % (36.0-47.0) Mean Corpuscular Volume 74 fL (79-100) Mean Corpuscular Hemoglobin 22 pg (25-35) Mean Corpuscular Hemoglobin Concent 30 g/dL (31-37) Red Cell Distribution Width 19.5 % (11.5-14.5) Platelet Count 167 x10^3/uL (140-400) Neutrophils (%) (Auto) 64 % (31-73) Lymphocytes (%) (Auto) 25 % (24-48) Monocytes (%) (Auto) 7 % (0-9) Eosinophils (%) (Auto) 3 % (0-3) Basophils (%) (Auto) 0 % (0-3) Neutrophils # (Auto) 4.4 x10^3/uL (1.8-7.7) Lymphocytes # (Auto) 1.7 x10^3/uL (1.0-4.8) Monocytes # (Auto) 0.5 x10^3/uL (0.0-1.1) Eosinophils # (Auto) 0.2 x10^3/uL (0.0-0.7) Basophils # (Auto) 0.0 x10^3/uL (0.0-0.2) Laboratory Tests Test 07/04/19 03:00 07/04/19 05:00 07/04/19 11:00 Sodium Level 144 mmol/L (136-145) Potassium Level 4.1 mmol/L (3.5-5.1) Chloride Level 103 mmol/L (98-107) Carbon Dioxide Level 35 mmol/L (21-32) Anion Gap 6 (6-14) Blood Urea Nitrogen 15 mg/dL (7-20) Creatinine 0.7 mg/dL (0.6-1.0) Estimated GFR (Cockcroft-Gault) 88.6 BUN/Creatinine Ratio 21 (6-20) Glucose Level 75 mg/dL (70-99) Calcium Level 8.9 mg/dL (8.5-10.1) Total Bilirubin 0.7 mg/dL (0.2-1.0) Aspartate Amino Transf (AST/SGOT) 16 U/L (15-37) Alanine Aminotransferase (ALT/SGPT) 17 U/L (14-59) Alkaline Phosphatase 76 U/L (46-116) Total Protein 7.0 g/dL (6.4-8.2) Albumin 3.1 g/dL (3.4-5.0) Albumin/Globulin Ratio 0.8 (1.0-1.7) White Blood Count 6.8 x10^3/uL (4.0-11.0) Red Blood Count 5.21 x10^6/uL (3.50-5.40) Hemoglobin 11.6 g/dL (12.0-15.5) Hematocrit 38.6 % (36.0-47.0) Mean Corpuscular Volume 74 fL (79-100) Mean Corpuscular Hemoglobin 22 pg (25-35) Mean Corpuscular Hemoglobin Concent 30 g/dL (31-37) Red Cell Distribution Width 19.5 % (11.5-14.5) Platelet Count 167 x10^3/uL (140-400) Neutrophils (%) (Auto) 64 % (31-73) Lymphocytes (%) (Auto) 25 % (24-48) Monocytes (%) (Auto) 7 % (0-9) Eosinophils (%) (Auto) 3 % (0-3) Basophils (%) (Auto) 0 % (0-3) Neutrophils # (Auto) 4.4 x10^3/uL (1.8-7.7) Lymphocytes # (Auto) 1.7 x10^3/uL (1.0-4.8) Monocytes # (Auto) 0.5 x10^3/uL (0.0-1.1) Eosinophils # (Auto) 0.2 x10^3/uL (0.0-0.7) Basophils # (Auto) 0.0 x10^3/uL (0.0-0.2) O2 Saturation 94 % (92-99) Arterial Blood pH 7.37 (7.35-7.45) Arterial Blood pCO2 at Patient Temp 56 mmHg (35-46) Arterial Blood pO2 at Patient Temp 72 mmHg (75-108) Arterial Blood HCO3 32 mmol/L (21-28) Arterial Blood Base Excess 5 mmol/L (-3-3) FiO2 35 Medications Active Scripts Medications Dose Route/Sig Max Daily Dose Days Date Category Dose Instructions Naproxen 500 Mg Tablet 500 Mg PO BID 07/02/19 Reported Orphenadrine Citrate 100 Mg Tablet.er 1 Tab PO BID 05/30/19 Rx [place] 5-325 Tablet (Acetaminophen/Hydrocodone Bitart) 1 Each Tablet 1 Tab PO PRN Q6HRS PRN 05/30/19 Rx Chantix (Varenicline Tartrate) 1 Each Tab.ds.pk 1 Each PO BID 12/22/14 Reported DAY 1-3 0.5 MG PO DAILY DAY 4-7 0.5 MG PO BID DAY 8-UNTIL END OF TREATMENT 1 MG PO BID Spiriva (Tiotropium [place]) 18 Mcg Cap.w.dev Cap IH DAILY 12/22/14 Reported Tramadol Hcl 50 Mg Tablet 50 Mg PO Q6H PRN 12/22/14 Reported Cyclobenzaprine Hcl 10 Mg Tablet 1 Tab PO TID 12/22/14 Reported Alprazolam 0.5 Mg Tablet 0.5 Mg PO PRN Q6HRS PRN 12/22/14 Reported Vitamin D3 (Cholecalciferol (Vitamin D3)) 1,000 Unit Tablet 2,000 Unit PO 12/22/14 Reported [calcium/vitamin D] 12/22/14 Reported [cholestoff] 12/22/14 Reported Fluoxetine Hcl 10 Mg Capsule 1 Cap PO DAILY 12/22/14 Reported Loratadine 10 Mg Tablet 1 Tab PO 12/22/14 Reported Fish Oil 1,000 Mg Capsule ([place]-3 Fatty Acids/Fish Oil) 1 Each Capsule 1 Each PO 12/22/14 Reported Naproxen 500 Mg Tablet.dr 1 Tab PO BID 12/22/14 Reported Impression . 1. Xnezn-pp-jbtesfz hypoxic and hypercapnic respiratory failure secondary to multifactorial etiologies including a combination of mild right heart failure, underlying chronic obstructive pulmonary disease 2. Mild- Moderate Pulmonary HTN on echo ( PA 40), Normal pulmonary capillary wedge pressure of 12 on recent cardiac catheterization with a pulmonary artery pressure of 50. Normal EF. 3. Suspect underlying chronic obstructive pulmonary disease. Smoked for 35 years. 4. Pulmonary hypertension, moderate, secondary to underlying chronic obstructive pulmonary disease and obstructive sleep apnea. CT chest done . No thromboembolic disease or any interstitial lung disease. Plan . 1. Try off BiPAP. Follow up ABGs improved 2. full PFTs. as OP 3. She will benefit from sleep study as an outpatient. 4. Bronchodilators. 5. Smoking cessation counseling provided. 6. Diuresis. 7. Discussed with the patient's family. Discussed with RT. We will follow along with you. CINTHYA JOHNSON MD Jul 04, 2019 14:16
[2019-07-04 14:46] VITALS: BP 102/57
--- NOTE | 2019-07-04 15:39 | RAD ---
EXAM: Bilateral lower extremity venous Doppler sonogram. HISTORY: Pain. TECHNIQUE: Pan scale and color Doppler sonographic evaluation of the bilateral lower extremity veins with spectral waveform analysis was performed. FINDINGS: There is normal color flow, normal compressibility and there are normal spectral waveforms in the common femoral, superficial femoral, popliteal, posterior tibial and greater saphenous veins. IMPRESSION: No Doppler evidence of lower extremity deep venous thrombosis. Electronically signed by: Waleska Baez MD (07/04/2019 3:36 PM) [place] [id number]
--- NOTE | 2019-07-04 16:06 | RAD ---
Examination: CT ANGIOGRAPHY CHEST History: Pulmonary hypertension Comparison/Correlation: 01/01/2015 CT chest with contrast, 07/02/2019 Portable Chest X-ray Exam Findings: Axial images of chest were obtained following IV contrast according to pulmonary arteriography protocol. Method images provided. Sagittal and coronal reformatted images provided. Main pulmonary artery diameter of 3.6 cm noted. Right pulmonary artery 2.7 cm diameter noted. Left pulmonary artery diameter of 3 cm diameter noted. No pulmonary arterial thromboembolic disease. Minimal bibasilar atelectasis present. Mildly dilated cardiomegaly present. Mosaic attenuation of the lung aguirre noted. Linear atelectasis at the costophrenic angles noted. Visualized upper abdomen is unremarkable. Bony structures are unremarkable. Impression: Distended main pulmonary artery is noted and may be observed in setting of pulmonary hypertension. Main pulmonary artery diameter appears increased compared to the prior exam. Dilated cardiomegaly noted. Small pleural effusions and minimal adjacent left basilar atelectasis. Mosaic attenuation of the lung aguirre which may represent small airways disease is new since the prior CT exam. PQRS Compliance Statement: One or more of the following individualized dose reduction techniques were utilized for this examination: 1. Automated exposure control 2. Adjustment of the mA and/or kV according to patient size 3. Use of iterative reconstruction technique Electronically signed by: Michael Madrid MD (07/04/2019 4:03 PM) [facility] [place]
[2019-07-04 19:05] VITALS: BP 112/51
[2019-07-04] MEDS: quiNINE 324 MG CAPSULE. PO PRN (20:37)
[2019-07-04] MEDS: SENNOSIDES/DOCUSATE 8.6/50MG TABLET. PO PRN (20:38)
[2019-07-04] MEDS: ALPRAZolam 0.5 MG TABLET PO PRN (20:44)
--- NOTE | 2019-07-04 21:01 | NUR ---
Pt on BiPap at 2047.
[2019-07-04 23:45] VITALS: BP 96/55
[2019-07-05 03:00] VITALS: BP 101/56
[2019-07-05 05:27] LABS: BASO % 0 % (0-3); EOS # 0.3 x10^3/uL (0.0-0.7); EOS % 4 % (0-3); HEMATOCRIT 35.1 % (36.0-47.0); HEMOGLOBIN 10.6 g/dL (12.0-15.5); LYMPH # 1.6 x10^3/uL (1.0-4.8); LYMPH % 24 % (24-48); MEAN CORPUSCULAR HEMOGLOBIN 22 pg (25-35); MEAN CORPUSCULAR HGB CONC 30 g/dL (31-37); MEAN CORPUSCULAR VOLUME 74 fL (79-100); MONO # 0.5 x10^3/uL (0.0-1.1); MONO % 8 % (0-9); NEUT # 4.2 x10^3/uL (1.8-7.7); NEUT % 63 % (31-73); PLATELET COUNT 157 x10^3/uL (140-400); RED BLOOD COUNT 4.74 x10^6/uL (3.50-5.40); WHITE BLOOD COUNT 6.6 x10^3/uL (4.0-11.0)
[2019-07-05 05:56] LABS: ALBUMIN 2.9 g/dL (3.4-5.0); ALBUMIN/GLOBULIN RATIO 0.8 (1.0-1.7); CALCIUM 8.9 mg/dL (8.5-10.1); CREATININE 0.6 mg/dL (0.6-1.0); GFR 105.8; TOTAL BILIRUBIN 0.5 mg/dL (0.2-1.0); TOTAL PROTEIN 6.7 g/dL (6.4-8.2)
[2019-07-05 07:00] VITALS: BP 85/63
--- NOTE | 2019-07-05 07:12 | PDOC ---
PULMONARY PROGRESS NOTES Subjective sob better, has occ cough, no pain Vitals Vital Signs Date Time Temp Pulse Resp B/P (MAP) Pulse Ox O2 Delivery O2 Flow Rate FiO2 07/05/19 05:10 97 07/05/19 03:00 97.7 76 22 101/56 (71) BiPAP/CPAP 97.7 07/04/19 20:16 3.0 ROS: No Chest Pain, No Increase Cough General: Alert, No acute distress Lungs: Other (decrease bases) Cardiovascular: S1, S2 Abdomen: Soft, Non-tender Neuro Exam: Alert Extremities: No Edema Skin: Warm Labs Laboratory Tests Test 07/03/19 10:10 07/03/19 14:00 07/04/19 03:00 07/04/19 05:00 O2 Saturation 90 % (92-99) 91 % (92-99) Arterial Blood pH 7.27 (7.35-7.45) 7.31 (7.35-7.45) Arterial Blood pCO2 at Patient Temp 75 mmHg (35-46) 67 mmHg (35-46) Arterial Blood pO2 at Patient Temp 68 mmHg (75-108) 67 mmHg (75-108) Arterial Blood HCO3 33 mmol/L (21-28) 33 mmol/L (21-28) Arterial Blood Base Excess 4 mmol/L (-3-3) 5 mmol/L (-3-3) FiO2 40 Sodium Level 144 mmol/L (136-145) Potassium Level 4.1 mmol/L (3.5-5.1) Chloride Level 103 mmol/L (98-107) Carbon Dioxide Level 35 mmol/L (21-32) Anion Gap 6 (6-14) Blood Urea Nitrogen 15 mg/dL (7-20) Creatinine 0.7 mg/dL (0.6-1.0) Estimated GFR (Cockcroft-Gault) 88.6 BUN/Creatinine Ratio 21 (6-20) Glucose Level 75 mg/dL (70-99) Calcium Level 8.9 mg/dL (8.5-10.1) Total Bilirubin 0.7 mg/dL (0.2-1.0) Aspartate Amino Transf (AST/SGOT) 16 U/L (15-37) Alanine Aminotransferase (ALT/SGPT) 17 U/L (14-59) Alkaline Phosphatase 76 U/L (46-116) Total Protein 7.0 g/dL (6.4-8.2) Albumin 3.1 g/dL (3.4-5.0) Albumin/Globulin Ratio 0.8 (1.0-1.7) White Blood Count 6.8 x10^3/uL (4.0-11.0) Red Blood Count 5.21 x10^6/uL (3.50-5.40) Hemoglobin 11.6 g/dL (12.0-15.5) Hematocrit 38.6 % (36.0-47.0) Mean Corpuscular Volume 74 fL (79-100) Mean Corpuscular Hemoglobin 22 pg (25-35) Mean Corpuscular Hemoglobin Concent 30 g/dL (31-37) Red Cell Distribution Width 19.5 % (11.5-14.5) Platelet Count 167 x10^3/uL (140-400) Neutrophils (%) (Auto) 64 % (31-73) Lymphocytes (%) (Auto) 25 % (24-48) Monocytes (%) (Auto) 7 % (0-9) Eosinophils (%) (Auto) 3 % (0-3) Basophils (%) (Auto) 0 % (0-3) Neutrophils # (Auto) 4.4 x10^3/uL (1.8-7.7) Lymphocytes # (Auto) 1.7 x10^3/uL (1.0-4.8) Monocytes # (Auto) 0.5 x10^3/uL (0.0-1.1) Eosinophils # (Auto) 0.2 x10^3/uL (0.0-0.7) Basophils # (Auto) 0.0 x10^3/uL (0.0-0.2) Test 07/04/19 11:00 07/05/19 04:00 O2 Saturation 94 % (92-99) Arterial Blood pH 7.37 (7.35-7.45) Arterial Blood pCO2 at Patient Temp 56 mmHg (35-46) Arterial Blood pO2 at Patient Temp 72 mmHg (75-108) Arterial Blood HCO3 32 mmol/L (21-28) Arterial Blood Base Excess 5 mmol/L (-3-3) FiO2 35 White Blood Count 6.6 x10^3/uL (4.0-11.0) Red Blood Count 4.74 x10^6/uL (3.50-5.40) Hemoglobin 10.6 g/dL (12.0-15.5) Hematocrit 35.1 % (36.0-47.0) Mean Corpuscular Volume 74 fL (79-100) Mean Corpuscular Hemoglobin 22 pg (25-35) Mean Corpuscular Hemoglobin Concent 30 g/dL (31-37) Red Cell Distribution Width 19.0 % (11.5-14.5) Platelet Count 157 x10^3/uL (140-400) Neutrophils (%) (Auto) 63 % (31-73) Lymphocytes (%) (Auto) 24 % (24-48) Monocytes (%) (Auto) 8 % (0-9) Eosinophils (%) (Auto) 4 % (0-3) Basophils (%) (Auto) 0 % (0-3) Neutrophils # (Auto) 4.2 x10^3/uL (1.8-7.7) Lymphocytes # (Auto) 1.6 x10^3/uL (1.0-4.8) Monocytes # (Auto) 0.5 x10^3/uL (0.0-1.1) Eosinophils # (Auto) 0.3 x10^3/uL (0.0-0.7) Basophils # (Auto) 0.0 x10^3/uL (0.0-0.2) Sodium Level 143 mmol/L (136-145) Potassium Level 4.0 mmol/L (3.5-5.1) Chloride Level 105 mmol/L (98-107) Carbon Dioxide Level 34 mmol/L (21-32) Anion Gap 4 (6-14) Blood Urea Nitrogen 13 mg/dL (7-20) Creatinine 0.6 mg/dL (0.6-1.0) Estimated GFR (Cockcroft-Gault) 105.8 BUN/Creatinine Ratio 22 (6-20) Glucose Level 82 mg/dL (70-99) Calcium Level 8.9 mg/dL (8.5-10.1) Total Bilirubin 0.5 mg/dL (0.2-1.0) Aspartate Amino Transf (AST/SGOT) 24 U/L (15-37) Alanine Aminotransferase (ALT/SGPT) 20 U/L (14-59) Alkaline Phosphatase 70 U/L (46-116) Total Protein 6.7 g/dL (6.4-8.2) Albumin 2.9 g/dL (3.4-5.0) Albumin/Globulin Ratio 0.8 (1.0-1.7) Laboratory Tests Test 07/04/19 11:00 07/05/19 04:00 O2 Saturation 94 % (92-99) Arterial Blood pH 7.37 (7.35-7.45) Arterial Blood pCO2 at Patient Temp 56 mmHg (35-46) Arterial Blood pO2 at Patient Temp 72 mmHg (75-108) Arterial Blood HCO3 32 mmol/L (21-28) Arterial Blood Base Excess 5 mmol/L (-3-3) FiO2 35 White Blood Count 6.6 x10^3/uL (4.0-11.0) Red Blood Count 4.74 x10^6/uL (3.50-5.40) Hemoglobin 10.6 g/dL (12.0-15.5) Hematocrit 35.1 % (36.0-47.0) Mean Corpuscular Volume 74 fL (79-100) Mean Corpuscular Hemoglobin 22 pg (25-35) Mean Corpuscular Hemoglobin Concent 30 g/dL (31-37) Red Cell Distribution Width 19.0 % (11.5-14.5) Platelet Count 157 x10^3/uL (140-400) Neutrophils (%) (Auto) 63 % (31-73) Lymphocytes (%) (Auto) 24 % (24-48) Monocytes (%) (Auto) 8 % (0-9) Eosinophils (%) (Auto) 4 % (0-3) Basophils (%) (Auto) 0 % (0-3) Neutrophils # (Auto) 4.2 x10^3/uL (1.8-7.7) Lymphocytes # (Auto) 1.6 x10^3/uL (1.0-4.8) Monocytes # (Auto) 0.5 x10^3/uL (0.0-1.1) Eosinophils # (Auto) 0.3 x10^3/uL (0.0-0.7) Basophils # (Auto) 0.0 x10^3/uL (0.0-0.2) Sodium Level 143 mmol/L (136-145) Potassium Level 4.0 mmol/L (3.5-5.1) Chloride Level 105 mmol/L (98-107) Carbon Dioxide Level 34 mmol/L (21-32) Anion Gap 4 (6-14) Blood Urea Nitrogen 13 mg/dL (7-20) Creatinine 0.6 mg/dL (0.6-1.0) Estimated GFR (Cockcroft-Gault) 105.8 BUN/Creatinine Ratio 22 (6-20) Glucose Level 82 mg/dL (70-99) Calcium Level 8.9 mg/dL (8.5-10.1) Total Bilirubin 0.5 mg/dL (0.2-1.0) Aspartate Amino Transf (AST/SGOT) 24 U/L (15-37) Alanine Aminotransferase (ALT/SGPT) 20 U/L (14-59) Alkaline Phosphatase 70 U/L (46-116) Total Protein 6.7 g/dL (6.4-8.2) Albumin 2.9 g/dL (3.4-5.0) Albumin/Globulin Ratio 0.8 (1.0-1.7) Medications Active Scripts Medications Dose Route/Sig Max Daily Dose Days Date Category Dose Instructions Naproxen 500 Mg Tablet 500 Mg PO BID 07/02/19 Reported Orphenadrine Citrate 100 Mg Tablet.er 1 Tab PO BID 05/30/19 Rx [place] 5-325 Tablet (Acetaminophen/Hydrocodone Bitart) 1 Each Tablet 1 Tab PO PRN Q6HRS PRN 05/30/19 Rx Chantix (Varenicline Tartrate) 1 Each Tab.ds.pk 1 Each PO BID 12/22/14 Reported DAY 1-3 0.5 MG PO DAILY DAY 4-7 0.5 MG PO BID DAY 8-UNTIL END OF TREATMENT 1 MG PO BID Spiriva (Tiotropium [place]cd[place]) 18 Mcg Cap.w.dev Cap IH DAILY 12/22/14 Reported Tramadol Hcl 50 Mg Tablet 50 Mg PO Q6H PRN 12/22/14 Reported Cyclobenzaprine Hcl 10 Mg Tablet 1 Tab PO TID 12/22/14 Reported Alprazolam 0.5 Mg Tablet 0.5 Mg PO PRN Q6HRS PRN 12/22/14 Reported Vitamin D3 (Cholecalciferol (Vitamin D3)) 1,000 Unit Tablet 2,000 Unit PO 3/17/15 Reported [calcium/vitamin D] 12/22/14 Reported [cholestoff] 12/22/14 Reported Fluoxetine Hcl 10 Mg Capsule 1 Cap PO DAILY 12/22/14 Reported Loratadine 10 Mg Tablet 1 Tab PO 12/22/14 Reported Fish Oil 1,000 Mg Capsule ([place]-3 Fatty Acids/Fish Oil) 1 Each Capsule 1 Each PO 12/22/14 Reported Naproxen 500 Mg Tablet.dr 1 Tab PO BID 12/22/14 Reported Impression . 1. [id number] hypoxic and hypercapnic respiratory failure secondary to multifactorial etiologies including a combination of mild right heart failure, underlying chronic obstructive pulmonary disease 2. Mild- Moderate Pulmonary HTN on echo ( PA 40), Normal pulmonary capillary wedge pressure of 12 on recent cardiac catheterization with a pulmonary artery pressure of 50. Normal EF. 3. Suspect underlying chronic obstructive pulmonary disease. Smoked for 35 years. 4. Pulmonary hypertension, moderate, secondary to underlying chronic obstructive pulmonary disease and obstructive sleep apnea. CT chest done . No thromboembolic disease or any interstitial lung disease. Plan . 1. bipap prn, 6 min walk at dc 2. full PFTs. as OP 3. She will benefit from sleep study as an outpatient. 4. Bronchodilators. 5. Smoking cessation counseling provided. 6. Diuresis. keep I<O, monitor k, cr 7. Discussed with the patient. Discussed with RN. We will follow along with you. JUDY MENON MD Jul 05, 2019 07:12
[2019-07-05] MEDS: IPRATRPIUM/ALBUTEROL 0.5/2.5MG 3 ML NEBU. NEB SCH ×4 (07:34→19:19)
[2019-07-05] MEDS: CHOLECALCIFEROL (VITAMIN D3) 1,000 UNIT TABLET PO SCH (08:53)
[2019-07-05] MEDS: ASPIRIN ENTERIC COATED 81 MG TABLET.DR. PO SCH (08:53)
[2019-07-05] MEDS: CYCLOBENZAPRINE 10 MG TABLET. PO SCH ×3 (08:53→21:03)
[2019-07-05] MEDS: OMEGA-3 FATTY ACIDS/FISH OIL 1,000 MG CAPSULE. PO SCH (08:53)
[2019-07-05] MEDS: FLUoxetine HCL 10 MG CAPSULE PO SCH (08:53)
[2019-07-05] MEDS: NICOTINE 21MG PATCH. TD SCH (08:54)
[2019-07-05 11:00] VITALS: BP 103/55
--- NOTE | 2019-07-05 12:25 | PDOC ---
[employer] PROGRESS NOTE Chief Complaint Chief Complaint Heart failure w/ unstable angina. History of Present Illness History of Present Illness 07/05/19 Pt seen and examined at bedside On nasal canula 2.5L Chart and labs reviewed ABG pCO2 was 56 Pulmonary wedge pressure was 12. Pulmonary arterial pressure was 50. Normal EF D/w RN 07/04/19 Pt seen and examined at bedside Was eating meal DW with RN Pt will be wearing BIPAP 24 hours a day and 7 days a week unless she is having a meal. Discussed smoking cessation. ABG pCO2 was 56 07/03/19 Pt seen and examined at bedside with nasal canula Pt was pleasant Pt is scheduled for a L and R heart cath today Charts and labs reviewed ABG pH is 7.27 D/w RN Vitals/I&O Vitals/I&O: Vital Signs Date Time Temp Pulse Resp B/P (MAP) Pulse Ox O2 Delivery O2 Flow Rate FiO2 07/05/19 11:30 92 Nasal Cannula 3.0 07/05/19 07:00 98.1 93 20 85/63 (70) 98.1 I & O 07/04/19 07/04/19 07/05/19 15:00 23:00 07:00 Intake Total 720 ml 240 ml 360 ml Output Total 500 ml Balance 220 ml 240 ml 360 ml Physical Exam Physical Exam: +1 edema on lower extremities General: Alert, Oriented X3, Cooperative Lungs: Other (decrease bases) Extremities: No clubbing, No cyanosis, Normal pulses Skin: No rashes, No breakdown Labs Labs: Laboratory Tests Test 07/05/19 04:00 White Blood Count 6.6 x10^3/uL (4.0-11.0) Red Blood Count 4.74 x10^6/uL (3.50-5.40) Hemoglobin 10.6 g/dL (12.0-15.5) Hematocrit 35.1 % (36.0-47.0) Mean Corpuscular Volume 74 fL (79-100) Mean Corpuscular Hemoglobin 22 pg (25-35) Mean Corpuscular Hemoglobin Concent 30 g/dL (31-37) Red Cell Distribution Width 19.0 % (11.5-14.5) Platelet Count 157 x10^3/uL (140-400) Neutrophils (%) (Auto) 63 % (31-73) Lymphocytes (%) (Auto) 24 % (24-48) Monocytes (%) (Auto) 8 % (0-9) Eosinophils (%) (Auto) 4 % (0-3) Basophils (%) (Auto) 0 % (0-3) Neutrophils # (Auto) 4.2 x10^3/uL (1.8-7.7) Lymphocytes # (Auto) 1.6 x10^3/uL (1.0-4.8) Monocytes # (Auto) 0.5 x10^3/uL (0.0-1.1) Eosinophils # (Auto) 0.3 x10^3/uL (0.0-0.7) Basophils # (Auto) 0.0 x10^3/uL (0.0-0.2) Sodium Level 143 mmol/L (136-145) Potassium Level 4.0 mmol/L (3.5-5.1) Chloride Level 105 mmol/L (98-107) Carbon Dioxide Level 34 mmol/L (21-32) Anion Gap 4 (6-14) Blood Urea Nitrogen 13 mg/dL (7-20) Creatinine 0.6 mg/dL (0.6-1.0) Estimated GFR (Cockcroft-Gault) 105.8 BUN/Creatinine Ratio 22 (6-20) Glucose Level 82 mg/dL (70-99) Calcium Level 8.9 mg/dL (8.5-10.1) Total Bilirubin 0.5 mg/dL (0.2-1.0) Aspartate Amino Transf (AST/SGOT) 24 U/L (15-37) Alanine Aminotransferase (ALT/SGPT) 20 U/L (14-59) Alkaline Phosphatase 70 U/L (46-116) Total Protein 6.7 g/dL (6.4-8.2) Albumin 2.9 g/dL (3.4-5.0) Albumin/Globulin Ratio 0.8 (1.0-1.7) Review of Systems Review of Systems: Pt denies fever Pt denies n/v/d Assessment and Plan Assessmemt and Plan Assessment Heart failure Unstable angina Plan Continue BIPAP as discussed Appreciate pulmonary input DVT prophylaxis O2 by nasal cannula until O2 saturation is greater than 90% Smoking cessation Diuresis Home meds Labs Full code Comment Review of Relevant I have reviewed the following items don (where applicable) has been applied. Medications: Current Medications Medications (Trade) Dose Ordered Sig/Cata Route PRN Reason Start Time Stop Time Status Last Admin Dose Admin Senna/Docusate Sodium (Senna Plus) 1 tab PRN BID PRN PO CONSTIPATION 07/04/19 20:15 07/04/19 20:38 MARTINEZ CORDOBA III DO Jul 05, 2019 12:25
[2019-07-05 15:00] VITALS: BP 100/50
[2019-07-05 19:05] VITALS: BP 122/69
[2019-07-05] MEDS: SENNOSIDES/DOCUSATE 8.6/50MG TABLET. PO PRN (21:03)
[2019-07-05] MEDS: ALPRAZolam 0.5 MG TABLET PO PRN (21:03)
[2019-07-05] MEDS: quiNINE 324 MG CAPSULE. PO PRN (21:03)
[2019-07-05 23:45] VITALS: BP 139/78
[2019-07-06 03:00] VITALS: BP 115/69
[2019-07-06 05:00] LABS: BASO % 0 % (0-3); EOS # 0.3 x10^3/uL (0.0-0.7); EOS % 3 % (0-3); HEMATOCRIT 36.5 % (36.0-47.0); HEMOGLOBIN 11.1 g/dL (12.0-15.5); LYMPH # 1.3 x10^3/uL (1.0-4.8); LYMPH % 15 % (24-48); MEAN CORPUSCULAR HEMOGLOBIN 23 pg (25-35); MEAN CORPUSCULAR HGB CONC 30 g/dL (31-37); MEAN CORPUSCULAR VOLUME 74 fL (79-100); MONO # 0.6 x10^3/uL (0.0-1.1); MONO % 7 % (0-9); NEUT # 6.8 x10^3/uL (1.8-7.7); NEUT % 75 % (31-73); PLATELET COUNT 157 x10^3/uL (140-400); RED BLOOD COUNT 4.94 x10^6/uL (3.50-5.40); RED CELL DISTRIBUTION WIDTH 18.6 % (11.5-14.5); WHITE BLOOD COUNT 9.1 x10^3/uL (4.0-11.0)
[2019-07-06 05:17] LABS: ALBUMIN/GLOBULIN RATIO 0.8 (1.0-1.7); CREATININE 0.6 mg/dL (0.6-1.0); GFR 105.8; POTASSIUM 3.9 mmol/L (3.5-5.1); TOTAL BILIRUBIN 0.6 mg/dL (0.2-1.0); TOTAL PROTEIN 6.8 g/dL (6.4-8.2)
[2019-07-06 07:00] VITALS: BP 108/67
--- NOTE | 2019-07-06 07:23 | PDOC ---
PULMONARY PROGRESS NOTES Subjective sob better, has occ cough, no sputum, no pain, used bipap last night Vitals Vital Signs Date Time Temp Pulse Resp B/P (MAP) Pulse Ox O2 Delivery O2 Flow Rate FiO2 07/06/19 05:27 95 07/06/19 03:00 98.1 85 22 115/69 (84) BiPAP/CPAP 98.1 07/05/19 20:00 2.0 ROS: No Chest Pain, No Increase Cough General: Alert, No acute distress Lungs: Other (decrease bases) Cardiovascular: S1, S2 Abdomen: Soft, Non-tender Neuro Exam: Alert Extremities: No Edema Skin: Warm Labs Laboratory Tests Test 07/04/19 11:00 07/05/19 04:00 07/06/19 04:00 O2 Saturation 94 % (92-99) Arterial Blood pH 7.37 (7.35-7.45) Arterial Blood pCO2 at Patient Temp 56 mmHg (35-46) Arterial Blood pO2 at Patient Temp 72 mmHg (75-108) Arterial Blood HCO3 32 mmol/L (21-28) Arterial Blood Base Excess 5 mmol/L (-3-3) FiO2 35 White Blood Count 6.6 x10^3/uL (4.0-11.0) 9.1 x10^3/uL (4.0-11.0) Red Blood Count 4.74 x10^6/uL (3.50-5.40) 4.94 x10^6/uL (3.50-5.40) Hemoglobin 10.6 g/dL (12.0-15.5) 11.1 g/dL (12.0-15.5) Hematocrit 35.1 % (36.0-47.0) 36.5 % (36.0-47.0) Mean Corpuscular Volume 74 fL (79-100) 74 fL (79-100) Mean Corpuscular Hemoglobin 22 pg (25-35) 23 pg (25-35) Mean Corpuscular Hemoglobin Concent 30 g/dL (31-37) 30 g/dL (31-37) Red Cell Distribution Width 19.0 % (11.5-14.5) 18.6 % (11.5-14.5) Platelet Count 157 x10^3/uL (140-400) 157 x10^3/uL (140-400) Neutrophils (%) (Auto) 63 % (31-73) 75 % (31-73) Lymphocytes (%) (Auto) 24 % (24-48) 15 % (24-48) Monocytes (%) (Auto) 8 % (0-9) 7 % (0-9) Eosinophils (%) (Auto) 4 % (0-3) 3 % (0-3) Basophils (%) (Auto) 0 % (0-3) 0 % (0-3) Neutrophils # (Auto) 4.2 x10^3/uL (1.8-7.7) 6.8 x10^3/uL (1.8-7.7) Lymphocytes # (Auto) 1.6 x10^3/uL (1.0-4.8) 1.3 x10^3/uL (1.0-4.8) Monocytes # (Auto) 0.5 x10^3/uL (0.0-1.1) 0.6 x10^3/uL (0.0-1.1) Eosinophils # (Auto) 0.3 x10^3/uL (0.0-0.7) 0.3 x10^3/uL (0.0-0.7) Basophils # (Auto) 0.0 x10^3/uL (0.0-0.2) 0.0 x10^3/uL (0.0-0.2) Sodium Level 143 mmol/L (136-145) 143 mmol/L (136-145) Potassium Level 4.0 mmol/L (3.5-5.1) 3.9 mmol/L (3.5-5.1) Chloride Level 105 mmol/L (98-107) 103 mmol/L (98-107) Carbon Dioxide Level 34 mmol/L (21-32) 34 mmol/L (21-32) Anion Gap 4 (6-14) 6 (6-14) Blood Urea Nitrogen 13 mg/dL (7-20) 15 mg/dL (7-20) Creatinine 0.6 mg/dL (0.6-1.0) 0.6 mg/dL (0.6-1.0) Estimated GFR (Cockcroft-Gault) 105.8 105.8 BUN/Creatinine Ratio 22 (6-20) 25 (6-20) Glucose Level 82 mg/dL (70-99) 94 mg/dL (70-99) Calcium Level 8.9 mg/dL (8.5-10.1) 9.0 mg/dL (8.5-10.1) Total Bilirubin 0.5 mg/dL (0.2-1.0) 0.6 mg/dL (0.2-1.0) Aspartate Amino Transf (AST/SGOT) 24 U/L (15-37) 24 U/L (15-37) Alanine Aminotransferase (ALT/SGPT) 20 U/L (14-59) 24 U/L (14-59) Alkaline Phosphatase 70 U/L (46-116) 70 U/L (46-116) Total Protein 6.7 g/dL (6.4-8.2) 6.8 g/dL (6.4-8.2) Albumin 2.9 g/dL (3.4-5.0) 3.0 g/dL (3.4-5.0) Albumin/Globulin Ratio 0.8 (1.0-1.7) 0.8 (1.0-1.7) Laboratory Tests Test 07/06/19 04:00 White Blood Count 9.1 x10^3/uL (4.0-11.0) Red Blood Count 4.94 x10^6/uL (3.50-5.40) Hemoglobin 11.1 g/dL (12.0-15.5) Hematocrit 36.5 % (36.0-47.0) Mean Corpuscular Volume 74 fL (79-100) Mean Corpuscular Hemoglobin 23 pg (25-35) Mean Corpuscular Hemoglobin Concent 30 g/dL (31-37) Red Cell Distribution Width 18.6 % (11.5-14.5) Platelet Count 157 x10^3/uL (140-400) Neutrophils (%) (Auto) 75 % (31-73) Lymphocytes (%) (Auto) 15 % (24-48) Monocytes (%) (Auto) 7 % (0-9) Eosinophils (%) (Auto) 3 % (0-3) Basophils (%) (Auto) 0 % (0-3) Neutrophils # (Auto) 6.8 x10^3/uL (1.8-7.7) Lymphocytes # (Auto) 1.3 x10^3/uL (1.0-4.8) Monocytes # (Auto) 0.6 x10^3/uL (0.0-1.1) Eosinophils # (Auto) 0.3 x10^3/uL (0.0-0.7) Basophils # (Auto) 0.0 x10^3/uL (0.0-0.2) Sodium Level 143 mmol/L (136-145) Potassium Level 3.9 mmol/L (3.5-5.1) Chloride Level 103 mmol/L (98-107) Carbon Dioxide Level 34 mmol/L (21-32) Anion Gap 6 (6-14) Blood Urea Nitrogen 15 mg/dL (7-20) Creatinine 0.6 mg/dL (0.6-1.0) Estimated GFR (Cockcroft-Gault) 105.8 BUN/Creatinine Ratio 25 (6-20) Glucose Level 94 mg/dL (70-99) Calcium Level 9.0 mg/dL (8.5-10.1) Total Bilirubin 0.6 mg/dL (0.2-1.0) Aspartate Amino Transf (AST/SGOT) 24 U/L (15-37) Alanine Aminotransferase (ALT/SGPT) 24 U/L (14-59) Alkaline Phosphatase 70 U/L (46-116) Total Protein 6.8 g/dL (6.4-8.2) Albumin 3.0 g/dL (3.4-5.0) Albumin/Globulin Ratio 0.8 (1.0-1.7) Medications Active Scripts Medications Dose Route/Sig Max Daily Dose Days Date Category Dose Instructions Naproxen 500 Mg Tablet 500 Mg PO BID 07/02/19 Reported Orphenadrine Citrate 100 Mg Tablet.er 1 Tab PO BID 05/30/19 Rx [place] 5-325 Tablet (Acetaminophen/Hydrocodone Bitart) 1 Each Tablet 1 Tab PO PRN Q6HRS PRN 05/30/19 Rx Chantix (Varenicline Tartrate) 1 Each Tab.ds.pk 1 Each PO BID 12/22/14 Reported DAY 1-3 0.5 MG PO DAILY DAY 4-7 0.5 MG PO BID DAY 8-UNTIL END OF TREATMENT 1 MG PO BID Spiriva (Tiotropium [place]) 18 Mcg Cap.w.dev Cap IH DAILY 3/17/15 Reported Tramadol Hcl 50 Mg Tablet 50 Mg PO Q6H PRN 12/22/14 Reported Cyclobenzaprine Hcl 10 Mg Tablet 1 Tab PO TID 12/22/14 Reported Alprazolam 0.5 Mg Tablet 0.5 Mg PO PRN Q6HRS PRN 12/22/14 Reported Vitamin D3 (Cholecalciferol (Vitamin D3)) 1,000 Unit Tablet 2,000 Unit PO 12/22/14 Reported [calcium/vitamin D] 12/22/14 Reported [cholestoff] 12/22/14 Reported Fluoxetine Hcl 10 Mg Capsule 1 Cap PO DAILY 12/22/14 Reported Loratadine 10 Mg Tablet 1 Tab PO 12/22/14 Reported Fish Oil 1,000 Mg Capsule ([place]-3 Fatty Acids/Fish Oil) 1 Each Capsule 1 Each PO 12/22/14 Reported Naproxen 500 Mg Tablet. 1 Tab PO BID 12/22/14 Reported Impression . 1. [id number] hypoxic and hypercapnic respiratory failure secondary to multifactorial etiologies including a combination of mild right heart failure, underlying chronic obstructive pulmonary disease 2. Mild- Moderate Pulmonary HTN on echo ( PA 40), Normal pulmonary capillary wedge pressure of 12 on recent cardiac catheterization with a pulmonary artery pressure of 50. Normal EF. 3. Suspect underlying chronic obstructive pulmonary disease. Smoked for 35 years. 4. Pulmonary hypertension, moderate, secondary to underlying chronic obstructive pulmonary disease and obstructive sleep apnea. CT chest done . No thromboembolic disease or any interstitial lung disease. Plan . 1. bipap prn, 6 min walk at dc 2. full PFTs. as OP 3. She will benefit from sleep study as an outpatient. 4. Bronchodilators. 5. Smoking cessation counseling provided. 6. Diuresis. keep I<O, monitor k, cr 7. Discussed with the patient. Discussed with RN and dr lazar. We will follow along with you. JUDY MENON MD Jul 06, 2019 07:23
[2019-07-06] MEDS: IPRATRPIUM/ALBUTEROL 0.5/2.5MG 3 ML NEBU. NEB SCH ×3 (07:46→15:47)
[2019-07-06] MEDS ORDERED: IPRA3AMP29 NEB (08:34)
[2019-07-06] MEDS ORDERED: ASPI-612 PO (08:34)
[2019-07-06] MEDS: CYCLOBENZAPRINE 10 MG TABLET. PO SCH (09:10)
[2019-07-06] MEDS: CHOLECALCIFEROL (VITAMIN D3) 1,000 UNIT TABLET PO SCH (09:10)
[2019-07-06] MEDS: ASPIRIN ENTERIC COATED 81 MG TABLET.DR. PO SCH (09:10)
[2019-07-06] MEDS: OMEGA-3 FATTY ACIDS/FISH OIL 1,000 MG CAPSULE. PO SCH (09:10)
[2019-07-06] MEDS: FLUoxetine HCL 10 MG CAPSULE PO SCH (09:10)
[2019-07-06] MEDS: NICOTINE 21MG PATCH. TD SCH (09:11)
--- NOTE | 2019-07-06 09:58 | PDOC3 ---
Discharge Summary Visit Information Date of Admission: Jul 02, 2019 Date of Discharge: Jul 06, 2019 Admitting Diagnosis Comment: 1. Rmdry-ew-rihgguu hypoxic and hypercapnic respiratory failure secondary to multifactorial etiologies including a combination of mild right heart failure, underlying chronic obstructive pulmonary disease 2. Mild- Moderate Pulmonary HTN on echo ( PA 40), Normal pulmonary capillary wedge pressure of 12 on recent cardiac catheterization with a pulmonary artery pressure of 50. Normal EF. 3. Suspect underlying chronic obstructive pulmonary disease. Smoked for 35 years. 4. Pulmonary hypertension, moderate, secondary to underlying chronic obstructive pulmonary disease and obstructive sleep apnea. CT chest done . No thromboembolic disease or any interstitial lung disease. Brief Hospital Course Allergies Allergies Coded Allergies Type Severity Reaction Last Updated Verified No Known Drug Allergies 03/14/14 No Vital Signs Vital Signs Date Time Temp Pulse Resp B/P (MAP) Pulse Ox O2 Delivery O2 Flow Rate FiO2 07/06/19 07:48 92 Nasal Cannula 3.0 07/06/19 07:00 97.5 83 20 108/67 (81) 97.5 Lab Results Laboratory Tests Test 07/04/19 11:00 07/05/19 04:00 07/06/19 04:00 O2 Saturation 94 % (92-99) Arterial Blood pH 7.37 (7.35-7.45) Arterial Blood pCO2 at Patient Temp 56 mmHg (35-46) Arterial Blood pO2 at Patient Temp 72 mmHg (75-108) Arterial Blood HCO3 32 mmol/L (21-28) Arterial Blood Base Excess 5 mmol/L (-3-3) FiO2 35 White Blood Count 6.6 x10^3/uL (4.0-11.0) 9.1 x10^3/uL (4.0-11.0) Red Blood Count 4.74 x10^6/uL (3.50-5.40) 4.94 x10^6/uL (3.50-5.40) Hemoglobin 10.6 g/dL (12.0-15.5) 11.1 g/dL (12.0-15.5) Hematocrit 35.1 % (36.0-47.0) 36.5 % (36.0-47.0) Mean Corpuscular Volume 74 fL (79-100) 74 fL (79-100) Mean Corpuscular Hemoglobin 22 pg (25-35) 23 pg (25-35) Mean Corpuscular Hemoglobin Concent 30 g/dL (31-37) 30 g/dL (31-37) Red Cell Distribution Width 19.0 % (11.5-14.5) 18.6 % (11.5-14.5) Platelet Count 157 x10^3/uL (140-400) 157 x10^3/uL (140-400) Neutrophils (%) (Auto) 63 % (31-73) 75 % (31-73) Lymphocytes (%) (Auto) 24 % (24-48) 15 % (24-48) Monocytes (%) (Auto) 8 % (0-9) 7 % (0-9) Eosinophils (%) (Auto) 4 % (0-3) 3 % (0-3) Basophils (%) (Auto) 0 % (0-3) 0 % (0-3) Neutrophils # (Auto) 4.2 x10^3/uL (1.8-7.7) 6.8 x10^3/uL (1.8-7.7) Lymphocytes # (Auto) 1.6 x10^3/uL (1.0-4.8) 1.3 x10^3/uL (1.0-4.8) Monocytes # (Auto) 0.5 x10^3/uL (0.0-1.1) 0.6 x10^3/uL (0.0-1.1) Eosinophils # (Auto) 0.3 x10^3/uL (0.0-0.7) 0.3 x10^3/uL (0.0-0.7) Basophils # (Auto) 0.0 x10^3/uL (0.0-0.2) 0.0 x10^3/uL (0.0-0.2) Sodium Level 143 mmol/L (136-145) 143 mmol/L (136-145) Potassium Level 4.0 mmol/L (3.5-5.1) 3.9 mmol/L (3.5-5.1) Chloride Level 105 mmol/L (98-107) 103 mmol/L (98-107) Carbon Dioxide Level 34 mmol/L (21-32) 34 mmol/L (21-32) Anion Gap 4 (6-14) 6 (6-14) Blood Urea Nitrogen 13 mg/dL (7-20) 15 mg/dL (7-20) Creatinine 0.6 mg/dL (0.6-1.0) 0.6 mg/dL (0.6-1.0) Estimated GFR (Cockcroft-Gault) 105.8 105.8 BUN/Creatinine Ratio 22 (6-20) 25 (6-20) Glucose Level 82 mg/dL (70-99) 94 mg/dL (70-99) Calcium Level 8.9 mg/dL (8.5-10.1) 9.0 mg/dL (8.5-10.1) Total Bilirubin 0.5 mg/dL (0.2-1.0) 0.6 mg/dL (0.2-1.0) Aspartate Amino Transf (AST/SGOT) 24 U/L (15-37) 24 U/L (15-37) Alanine Aminotransferase (ALT/SGPT) 20 U/L (14-59) 24 U/L (14-59) Alkaline Phosphatase 70 U/L (46-116) 70 U/L (46-116) Total Protein 6.7 g/dL (6.4-8.2) 6.8 g/dL (6.4-8.2) Albumin 2.9 g/dL (3.4-5.0) 3.0 g/dL (3.4-5.0) Albumin/Globulin Ratio 0.8 (1.0-1.7) 0.8 (1.0-1.7) Laboratory Tests Test 07/06/19 04:00 White Blood Count 9.1 x10^3/uL (4.0-11.0) Red Blood Count 4.94 x10^6/uL (3.50-5.40) Hemoglobin 11.1 g/dL (12.0-15.5) Hematocrit 36.5 % (36.0-47.0) Mean Corpuscular Volume 74 fL (79-100) Mean Corpuscular Hemoglobin 23 pg (25-35) Mean Corpuscular Hemoglobin Concent 30 g/dL (31-37) Red Cell Distribution Width 18.6 % (11.5-14.5) Platelet Count 157 x10^3/uL (140-400) Neutrophils (%) (Auto) 75 % (31-73) Lymphocytes (%) (Auto) 15 % (24-48) Monocytes (%) (Auto) 7 % (0-9) Eosinophils (%) (Auto) 3 % (0-3) Basophils (%) (Auto) 0 % (0-3) Neutrophils # (Auto) 6.8 x10^3/uL (1.8-7.7) Lymphocytes # (Auto) 1.3 x10^3/uL (1.0-4.8) Monocytes # (Auto) 0.6 x10^3/uL (0.0-1.1) Eosinophils # (Auto) 0.3 x10^3/uL (0.0-0.7) Basophils # (Auto) 0.0 x10^3/uL (0.0-0.2) Sodium Level 143 mmol/L (136-145) Potassium Level 3.9 mmol/L (3.5-5.1) Chloride Level 103 mmol/L (98-107) Carbon Dioxide Level 34 mmol/L (21-32) Anion Gap 6 (6-14) Blood Urea Nitrogen 15 mg/dL (7-20) Creatinine 0.6 mg/dL (0.6-1.0) Estimated GFR (Cockcroft-Gault) 105.8 BUN/Creatinine Ratio 25 (6-20) Glucose Level 94 mg/dL (70-99) Calcium Level 9.0 mg/dL (8.5-10.1) Total Bilirubin 0.6 mg/dL (0.2-1.0) Aspartate Amino Transf (AST/SGOT) 24 U/L (15-37) Alanine Aminotransferase (ALT/SGPT) 24 U/L (14-59) Alkaline Phosphatase 70 U/L (46-116) Total Protein 6.8 g/dL (6.4-8.2) Albumin 3.0 g/dL (3.4-5.0) Albumin/Globulin Ratio 0.8 (1.0-1.7) Brief Hospital Course Ms. Gould is a 48 old female who is a smoker and trying to quit, uses chantix, she needed O2 for 1 month last time she was hospitalized, Comes in bec of another COPD exacerbation, she might need O2 again - doing a 6MW. Echo and LHC clean, heart is good, it is her COPD causing SOA Dw Dr Karol Jackson: pulmo, cards PRcoL: echo (i provoded copy to her EF 55%), and normal LHC MIld PA pressures on echo 50 mm hg I wrote her scripts neb, etc, pulmicort, 6 MW, O2 script Pt seen and examined Counselled on her cally dc 32 mins Discharge Information Condition at Discharge: Improved, Stable Follow Up: Weeks (OP sleep study) Disposition/Orders: D/C to Home Scheduled Aspirin (Aspirin Ec) 81 Mg Tablet., 81 MG PO DAILYWBKFT for prevention, #90 Prescribed by: KATIA POMPA on 07/06/19 0834 Cyclobenzaprine Hcl (Cyclobenzaprine Hcl) 10 Mg Tablet, 1 TAB PO TID, #90 (Reported) Entered as Reported by: GASTON PAGAN on 12/22/141155 Last Action: Continued on 07/02/192043 by Kell Miller Fluoxetine Hcl (Fluoxetine Hcl) 10 Mg Capsule, 1 CAP PO DAILY, #30 Ref 2 (Reported) Entered as Reported by: GASTON PAGAN on 12/22/141155 Last Action: Continued on 07/02/192043 by Kell Miller Ipratropium/Albuterol Sulfate (Duoneb 0.5-3(2.5) Mg/3 Ml) 3 Ml Ampul.neb, 3 ML NEB RTQID for soa, #60 Prescribed by: KATIA POMPA on 07/06/19 0834 Naproxen (Naproxen) 500 Mg Tablet., 1 TAB PO BID, #60 Ref 2 (Reported) Entered as Reported by: GASTON PAGAN on 12/22/141155 Last Action: Converted on 07/02/192043 by Kell Miller Naproxen (Naproxen) 500 Mg Tablet, 500 MG PO BID for PAIN, (Reported) Entered as Reported by: Daryn Thao on 07/02/19 1625 Last Taken: 500 on Unknown Date & Time Last Action: Continued on 07/02/192043 by Kell Miller Orphenadrine Citrate (Orphenadrine Citrate) 100 Mg Tablet.er, 1 TAB PO BID, #20 Ref 1 Prescribed by: ANJELICA RAPP APRN on 05/30/19 2340 Tiotropium [place] (Spiriva) 18 Mcg Cap.w.dev, CAP IH DAILY, #30 Ref 3 (Reported) Entered as Reported by: GASTON PAGAN on 12/22/141155 Varenicline Tartrate (Chantix) 1 Each Tab.ds.pk, 1 EACH PO BID for SMOKING CESSATION, (Reported) DAY 1-3 0.5 MG PO DAILY DAY 4-7 0.5 MG PO BID DAY 8-UNTIL END OF TREATMENT 1 MG PO BID Entered as Reported by: GASTON PAGAN on 12/22/141155 Scheduled PRN Alprazolam (Alprazolam) 0.5 Mg Tablet, 0.5 MG PO PRN Q6HRS PRN for ANXIETY / AGITATION, Ref 0 (Reported) Entered as Reported by: GASTON PAGAN on 12/22/141155 Last Action: Continued on 07/02/192043 by Kell Miller Hydrocodone/Apap 5-325 ([place] 5-325 Tablet) 1 Each Tablet, 1 TAB PO PRN Q6HRS PRN for PAIN, #10 Ref 0 Prescribed by: ANJELICA RAPP APRN on 05/30/192339 Last Action: Continued on 07/02/192043 by Kell Miller Tramadol Hcl (Tramadol Hcl) 50 Mg Tablet, 50 MG PO Q6H PRN for PAIN, (Reported) Entered as Reported by: GASTON PAGAN on 12/22/141155 Last Action: Continued on 07/02/192043 by Kell Miller Miscellaneous Medications Cholecalciferol (Vitamin D3) (Vitamin D3) 1,000 Unit Tablet, 2,000 UNIT PO, (Reported) Entered as Reported by: GASTON PAGAN on 12/22/141155 Last Action: Continued on 07/02/192043 by Kell Miller Loratadine (Loratadine) 10 Mg Tablet, 1 TAB PO, #30 Ref 5 (Reported) Entered as Reported by: GASTON PAGAN on 12/22/141155 [place]-3 Fatty Acids/Fish Oil (Fish Oil 1,000 Mg Capsule) 1 Each Capsule, 1 EACH PO, (Reported) Entered as Reported by: GASTON PAGAN on 12/22/141155 Last Action: Continued on 07/02/192043 by Kell Miller [calcium/vitamin D] , (Reported) Entered as Reported by: GASTON PAGAN on 12/22/14 1156 [cholestoff] , (Reported) Entered as Reported by: GASTON PAGAN on 12/22/14 1156 KATIA POMPA MD Jul 06, 2019 09:58
[2019-07-06] MEDS ORDERED: BUDE180A IH (10:00)
[2019-07-06 11:00] VITALS: BP 102/53
[2019-07-06 15:00] VITALS: BP 109/64
--- NOTE | 2019-07-06 17:21 | NUR ---
Discharge Note: ERICK ESPINOZA [facility] Discharge instructions and discharge home medications reviewed with Patient and a copy given. All questions have been answered and understanding verbalized. The following instructions and handouts were given: medication list, patient education (COPD, pulm htn, smoking cessation)and oxygen use Discontinued lines and drains: clean, dry and intact. Patient discharged to home with spouse via wheelchair
== END 2019-07-06 17:24 | disposition home or self-care (01) | DRG 286 ==
LOC: 2 SOUTH 14:46
PROVIDERS: ADMIT Internal Medicine; ATTEND Internal Medicine
PROC: 4A023N8 Measurement of Cardiac Sampling and Pressure, Bilateral, Percutaneous Approach (ICD-10-PCS; principal; 2019-07-03)
PROC: B2111ZZ Fluoroscopy of Multiple Coronary Arteries using Low Osmolar Contrast (ICD-10-PCS; 2019-07-03)
PROC: B2151ZZ Fluoroscopy of Left Heart using Low Osmolar Contrast (ICD-10-PCS; 2019-07-03)
PROC: 5A09357 Assistance with Respiratory Ventilation, Less than 24 Consecutive Hours, Continuous Positive Airway Pressure (ICD-10-PCS; 2019-07-03)
PROC: 5A09357 Assistance with Respiratory Ventilation, Less than 24 Consecutive Hours, Continuous Positive Airway Pressure (ICD-10-PCS; 2019-07-04)
PROC: 5A09357 Assistance with Respiratory Ventilation, Less than 24 Consecutive Hours, Continuous Positive Airway Pressure (ICD-10-PCS; 2019-07-05)
DX: I11.0 Hypertensive heart disease with heart failure (principal); J96.21 Acute and chronic respiratory failure with hypoxia; J96.22 Acute and chronic respiratory failure with hypercapnia; J44.1 Chronic obstructive pulmonary disease with (acute) exacerbation; I25.110 Atherosclerotic heart disease of native coronary artery with unstable angina pectoris; I50.43 Acute on chronic combined systolic (congestive) and diastolic (congestive) heart failure; I27.29 Other secondary pulmonary hypertension; I50.82 Biventricular heart failure; J44.9 Chronic obstructive pulmonary disease, unspecified; G47.33 Obstructive sleep apnea (adult) (pediatric); F17.200 Nicotine dependence, unspecified, uncomplicated; E78.5 Hyperlipidemia, unspecified; F32.9 Major depressive disorder, single episode, unspecified; F41.9 Anxiety disorder, unspecified; G89.29 Other chronic pain; M19.90 Unspecified osteoarthritis, unspecified site; Z82.49 Family history of ischemic heart disease and other diseases of the circulatory system
CPT/HCPCS: 36415; 36600; 71045; 71275; 80048; 80053; 80061; 82805; 83735; 83880; 84484; 85025; 85027; 85610; 93005; 93306; 93460; 93970; 94640; 94660; 94760; 99152; 99153; 99406; C1769; C1773; C1892; J1644; J1940; J2250; J3010; J7620; Q9967; G0378

== ENCOUNTER 2019-09-09 11:49 | Emergency (ER) | payer OTHER ==
[~2019-09-09] VITALS: Ht 160 cm; Wt 81.6 kg
[~2019-09-09 11:49] MED LIST changes: +ASPI-612 PO; +BUDE180A IH; +FLUO10CA14 PO; -FLUO10CA7 PO; +FURO40TA4 PO; +IPRA3AMP29 NEB; +MAGN400T5 PO; +METO25TA4 PO; +NAPR-514 PO; +SERT50TA8 PO; +TIOT4MIS3 INH
--- NOTE | 2019-09-09 12:28 | PHYS DOC ---
Past Medical History Past Medical History: Arthritis, Depression Additional Past Medical Histor: back pain Past Surgical History: , Hysterectomy Additional Past Surgical Histo: jaw surgery, "gland surgery", hernia repair, colon resection Alcohol Use: None Drug Use: None Adult General Chief Complaint Chief Complaint: CHEST PAIN HPI HPI Patient is a 48 year old patient with history of pulmonary hypertension, COPD on home oxygen, CHF, depression and arthritis who presents with obtaining of chest pain and shortness of breath. Patient state she has had intermittent episodes of exertional substernal chest pain as a sharp pain that happens several times a day for the last 1 week associated with palpitation, shortness of breath, nausea, dizziness and generalized weakness. Patient denies fever, nausea and vomiting, abdominal pain, urinary symptom. Patient seen by his primary care physician today for adjustment of metoprolol and had heart rate of 120s and blood pressure of 80/40 and his primary care physician recommended to come to the hospital. Review of Systems Review of Systems Constitutional: Denies fever or chills [] Eyes: Denies change in visual acuity, redness, or eye pain [] HENT: Denies nasal congestion or sore throat [] Respiratory: Reports cough and shortness of breath Cardiovascular: No additional information not addressed in HPI [] GI: Denies abdominal pain, nausea, vomiting, bloody stools or diarrhea [] : Denies dysuria or hematuria [] Musculoskeletal: Denies back pain or joint pain [] Integument: Denies rash or skin lesions [] Neurologic: Denies headache, focal weakness or sensory changes [] Endocrine: Denies polyuria or polydipsia [] All other systems were reviewed and found to be within normal limits, except as documented in this note. Current Medications Current Medications Current Medications Medications (Trade) Dose Ordered Sig/Cata Start Time Stop Time Status Last Admin Dose Admin Digoxin (Lanoxin) 500 mcg 1X ONCE 09/09/19 13:00 09/09/19 13:01 DC 09/09/19 14:09 500 MCG Info (CONTRAST GIVEN -- Rx MONITORING) 1 each PRN DAILY PRN 09/09/19 13:45 09/11/19 13:44 Iohexol (Omnipaque 350 Mg/ml) 100 ml 1X ONCE 09/09/19 13:45 09/09/19 13:46 DC 09/09/19 13:54 100 ML Methylprednisolone Sodium Succinate (SOLU-Medrol 125MG VIAL) 125 mg 1X ONCE 09/09/19 12:30 09/09/19 12:31 DC 09/09/19 14:08 125 MG Sodium Chloride 500 ml @ 500 mls/hr 1X ONCE 09/09/19 12:30 09/09/19 13:29 DC 09/09/19 14:07 500 MLS/HR Allergies Allergies Allergies Coded Allergies Type Severity Reaction Last Updated Verified No Known Drug Allergies 03/14/14 No Physical Exam Physical Exam Constitutional: Well developed, well nourished, moderate distress, non-toxic appearance. [] HENT: Normocephalic, atraumatic, bilateral external ears normal, oropharynx dry, no oral exudates, nose normal. [] Eyes: PERRLA, EOMI, conjunctiva normal, no discharge. [] Neck: Normal range of motion, no tenderness, supple, no stridor, bilateral JVD. [] Cardiovascular: Tachycardia, no murmur [] Lungs & Thorax: Decreased air movement in bibasilar, no wheezing or rhonchi Abdomen: Bowel sounds normal, soft, no tenderness, no masses, no pulsatile mas ses. [] Skin: Warm, dry, no erythema, no rash. [] Back: No tenderness, no CVA tenderness. [] Extremities: No tenderness, no cyanosis, no clubbing, ROM intact, no edema. [] Neurologic: Alert and oriented X 3, normal motor function, normal sensory function, no focal deficits noted. [] Psychologic: Affect anxious, judgement normal, mood normal. [] Current Patient Data Vital Signs Vital Signs Date Time Temp Pulse Resp B/P (MAP) Pulse Ox O2 Delivery O2 Flow Rate FiO2 09/09/19 14:36 110 22 109/70 (83) 95 Room Air 09/09/19 12:30 99.5 3.0 99.5 Lab Values Laboratory Tests Test 09/09/19 12:05 09/09/19 13:35 09/09/19 14:30 White Blood Count 14.6 x10^3/uL (4.0-11.0) H Red Blood Count 3.37 x10^6/uL (3.50-5.40) L Hemoglobin 8.9 g/dL (12.0-15.5) L Hematocrit 28.2 % (36.0-47.0) L Mean Corpuscular Volume 84 fL (79-100) Mean Corpuscular Hemoglobin 27 pg (25-35) Mean Corpuscular Hemoglobin Concent 32 g/dL (31-37) Red Cell Distribution Width 26.1 % (11.5-14.5) H Platelet Count 308 x10^3/uL (140-400) Neutrophils (%) (Auto) 72 % (31-73) Lymphocytes (%) (Auto) 18 % (24-48) L Monocytes (%) (Auto) 8 % (0-9) Eosinophils (%) (Auto) 1 % (0-3) Basophils (%) (Auto) 1 % (0-3) Neutrophils # (Auto) 10.5 x10^3/uL (1.8-7.7) H Lymphocytes # (Auto) 2.6 x10^3/uL (1.0-4.8) Monocytes # (Auto) 1.2 x10^3/uL (0.0-1.1) H Eosinophils # (Auto) 0.2 x10^3/uL (0.0-0.7) Basophils # (Auto) 0.2 x10^3/uL (0.0-0.2) Platelet Estimate Adequate (ADEQUATE) Large Platelets Few Polychromasia Present Anisocytosis Mod Prothrombin Time 21.3 SEC (11.7-14.0) H Prothrombin Time INR 1.9 (0.8-1.1) H D-Dimer (Lety) 4.57 ug/mlFEU (0.00-0.50) H Sodium Level 139 mmol/L (136-145) Potassium Level 4.2 mmol/L (3.5-5.1) Chloride Level 102 mmol/L (98-107) Carbon Dioxide Level 31 mmol/L (21-32) Anion Gap 6 (6-14) Blood Urea Nitrogen 14 mg/dL (7-20) Creatinine 0.8 mg/dL (0.6-1.0) Estimated GFR (Cockcroft-Gault) 75.9 BUN/Creatinine Ratio 18 (6-20) Glucose Level 127 mg/dL (70-99) H Calcium Level 8.7 mg/dL (8.5-10.1) Magnesium Level 2.1 mg/dL (1.8-2.4) Total Bilirubin 0.7 mg/dL (0.2-1.0) Aspartate Amino Transferase (AST) 40 U/L (15-37) H Alanine Aminotransferase (ALT) 190 U/L (14-59) H Alkaline Phosphatase 105 U/L (46-116) Creatine Kinase 160 U/L (26-192) Troponin I Quantitative < 0.017 ng/mL (0.000-0.055) XE-Nnu-O-Type Natriuretic Peptide 1979 pg/mL (0-124) H Total Protein 7.8 g/dL (6.4-8.2) Albumin 2.9 g/dL (3.4-5.0) L Albumin/Globulin Ratio 0.6 (1.0-1.7) L Lipase 84 U/L (73-393) Thyroid Stimulating Hormone (TSH) 3.368 uIU/mL (0.358-3.74) Lactic Acid Level 0.7 mmol/L (0.4-2.0) Urine Color Patricia Urine Clarity Clear Urine pH 7.0 Urine Specific Byars >=1.030 Urine Protein 30 mg/dL (NEG-TRACE) Urine Glucose (UA) Negative mg/dL (NEG) Urine Ketones (Stick) Negative mg/dL (NEG) Urine Blood Negative (NEG) Urine Nitrite Negative (NEG) Urine Bilirubin Small (NEG) Urine Urobilinogen Dipstick 1.0 mg/dL (0.2 mg/dL) Urine Leukocyte Esterase Negative (NEG) Urine RBC 0 /HPF (0-2) Urine WBC Occ /HPF (0-4) Urine Squamous Epithelial Cells Mod /LPF Urine Bacteria 0 /HPF (0-FEW) Urine Hyaline Casts Few /HPF Urine Mucus Mod /LPF Laboratory Tests 09/09/19 12:05 Laboratory Tests 09/09/19 12:05 EKG EKG EKG interpreted by me. EKG at 1201 showed atrial flutter at rate of 120, T-wave abnormalities anterior leads, no acute ST and T-wave elevation. Radiology/Procedures Radiology/Procedures [][facility] [address] [place] [address] IMAGING REPORT Signed PATIENT: GAYATRI ESPINOZA ACCOUNT: [id number] : 1970 LOCATION: ER AGE: 48 SEX: F EXAM STATUS: REG ER ORD. PHYSICIAN: BLADIMIR MILLER MD REASON: shortness of breath and chest pain PROCEDURE: PORTABLE CHEST 1V EXAM: Chest, single view. HISTORY: Shortness of breath. Chest pain. COMPARISON: 07/04/2019. FINDINGS: A frontal view of the chest is obtained. There is suspected partially consolidated left lower lobe infiltrate and a small left pleural effusion. There is no pneumothorax. There is a stable cardiac silhouette. IMPRESSION: Suspected left lower lobe infiltrate and small left pleural effusion. Electronically signed by: Waleska Meyers MD (09/09/2019 12:37 PM) [facility] DICTATED and SIGNED BY: WALESKA MEYERS MD DATE: 09/09/19 1237 [facility] [address] [place] [address] IMAGING REPORT Signed PATIENT: GAYATRI ESPINOZA ACCOUNT: [id number] : 1970 LOCATION: ER AGE: 48 SEX: F EXAM STATUS: REG ER ORD. PHYSICIAN: BLADIMIR MILLER MD REASON: shortness of breath, chest pain, tachycardia, elevated d-dimer PROCEDURE: CT ANGIOGRAPHY CHEST CT ANGIOGRAPHY CHEST INDICATION: Dyspnea, chest pain, tachycardia, elevated d-dimer. Comparison: 08/26/2019. TECHNIQUE: Following the uneventful administration of intravenous contrast, 100 cc Omnipaque 350, axial CT sections were obtained through the lungs and upper abdomen. Multiplanar reconstructions and MIP images were obtained. PQRS compliance statement: One or more of the following individualized dose reduction techniques were utilized for this examination: 1. Automated exposure control 2. Adjustment of the mA and/or kV according to patient size 3. Use of iterative reconstruction technique FINDINGS: Pulmonary arteries: No evidence of pulmonary thromboembolic disease. Dilated pulmonary trunk measures 35 mm in diameter. Lungs and Airways: No consolidation. Bibasilar dependent, subsegmental, and left basilar relaxation atelectasis. Mild interlobular septal thickening. No abnormality of the central airways. Pleura: Small left pleural effusion. Heart and Mediastinum: The visualized thyroid is normal in size and attenuation. No axillary or supraclavicular lymphadenopathy. No mediastinal, hilar or retrocrural lymphadenopathy. Cardiomegaly. Pericardial effusion measuring 2.1 cm in thickness posteriorly, previously 0.8 cm. Normal caliber thoracic aorta. Abdomen: Limited images through the upper abdomen show no abnormality of the visualized organs. Bones and Soft Tissues: Degenerative changes of the spine. IMPRESSION: 1. No evidence of pulmonary thromboembolic disease. 2. Cardiomegaly with pericardial effusion measuring 2.1 cm in thickness, previously 0.8 cm on 08/26/2019. 3. No confluent consolidation. Interstitial edema. Small left pleural effusion. 4. Dilated pulmonary trunk, which can be seen with pulmonary hypertension. Electronically signed by: Yolande Franklin MD (09/09/2019 2:30 PM) [facility] DICTATED and SIGNED BY: YOLANDE FRANKLIN MD DATE: 09/09/19 1430 Course & Med Decision Making Course & Med Decision Making Pertinent Labs and Imaging studies reviewed. (See chart for details) Evaluation of patient in ER showed 48-year-old female patient with history of ASD, atrial flutter, redness, CRP on home oxygen with complaining of chest pain and shortness of breath intermittently and hypotension and tachycardia at her primary care physician office. Patient had blood pressure of 90s over 50s and heart rate of 120s with atrial flutter. Patient has history of CHF but because of low blood pressure treated with 500 normal saline and digoxin 500 g per recommendation of on-call production lead with improvement of the heart rate to 113 and blood pressure more than 100. Patient had elevation of d-dimer and CT of chest showed pericardial effusion. Dr. Weems recommended to transfer patient to [facility] for cardiac ablation regarding atrial flutter and repairing ASD. Dr. Gerald Grossman accepted transfer to [facility] at [place] at 1450. Dragon Disclaimer Dragon Disclaimer This electronic medical record was generated, in whole or in part, using a voice recognition dictation system. Departure Departure Impression: Primary Impression: Pericardial effusion Additional Impressions: Atrial flutter Chest pain Anemia Dyspnea Hypotension Generalized weakness ASD (atrial septal defect) COPD (chronic obstructive pulmonary disease) Disposition: 05 TRANSFER OTHER ([facility], Dr. Gerald Grossman accepted transfer at 1450) Condition: GUARDED Referrals: RICK BERTRAND MD (PCP) The HEART Score for CP Pts HEART Score for Chest Pain: HEART Score for Chest Pain Response (Comments) Value History Moderately Suspicious 1 ECG Nonspecific Repolarizatio 1 Age >45 - < 65 1 Risk Factors 1 or 2 Risk Factors 1 Troponin < Normal Limit 0 Total 4 Risk Factors: Risk Factors: DM, Current or recent (<one month) smoker, HTN, HLP, family history of CAD, obesity. Risk Scores: Score 0 - 3: 2.5% MACE over next 6 weeks - Discharge Home Score 4 - 6: 20.3% MACE over next 6 weeks - Admit for Clinical Observation Score 7 - 10: 72.7% MACE over next 6 weeks - Early Invasive Strategies Critical Care Time Critical care time was 80 minutes exclusive of procedures. Problem Qualifiers Additional Impressions: Atrial flutter Atrial flutter type: typical Qualified Codes: I48.3 - Typical atrial flutter Chest pain Chest pain type: unspecified Qualified Codes: R07.9 - Chest pain, unspecified Anemia Anemia type: unspecified type Qualified Codes: D64.9 - Anemia, unspecified Dyspnea Dyspnea type: unspecified Qualified Codes: R06.00 - Dyspnea, unspecified Hypotension Hypotension type: unspecified hypotension type Qualified Codes: I95.9 - Hypotension, unspecified COPD (chronic obstructive pulmonary disease) COPD type: unspecified COPD Qualified Codes: J44.9 - Chronic obstructive pulmonary disease, unspecified BLADIMIR MILLER MD Sep 09, 2019 12:28
[2019-09-09 12:30] LABS: BASO # 0.2 x10^3/uL (0.0-0.2); BASO % 1 % (0-3); EOS # 0.2 x10^3/uL (0.0-0.7); EOS % 1 % (0-3); HEMATOCRIT 28.2 % (36.0-47.0); HEMOGLOBIN 8.9 g/dL (12.0-15.5); LYMPH # 2.6 x10^3/uL (1.0-4.8); LYMPH % 18 % (24-48); MEAN CORPUSCULAR HEMOGLOBIN 27 pg (25-35); MEAN CORPUSCULAR HGB CONC 32 g/dL (31-37); MEAN CORPUSCULAR VOLUME 84 fL (79-100); MONO # 1.2 x10^3/uL (0.0-1.1); MONO % 8 % (0-9); NEUT # 10.5 x10^3/uL (1.8-7.7); NEUT % 72 % (31-73); PLATELET COUNT 308 x10^3/uL (140-400); RED BLOOD COUNT 3.37 x10^6/uL (3.50-5.40); RED CELL DISTRIBUTION WIDTH 26.1 % (11.5-14.5); WHITE BLOOD COUNT 14.6 x10^3/uL (4.0-11.0)
[2019-09-09] MEDS ORDERED: IV NORMAL SALINE 500ML BAG 500 ML IV ONE (12:30)
[2019-09-09] MEDS ORDERED: methylPREDNISolone SOD SUCC PF 125 MG/2 ML VIAL. IV ONE (12:30)
--- NOTE | 2019-09-09 12:31 | EKG ---
[facility] [address] [place] [address] Test Date: 2019-09-09 Test Time: 12:01:47 Pat Name: GAYATRI ESPINOZA Department: Room: Gender: F Take Off Man: : 1970 Requested By: BLADIMIR MILLER Order Number: [id number] Reading MD: Measurements Intervals [place] Rate: 120 P: 63 [place]: 106 QRS: 55 QRSD: 90 T: -19 QT: 310 QTc: 443 Interpretive Statements SINUS TACHYCARDIA T ABNORMALITY IN ANTERIOR LEADS ABNORMAL ECG RI6.01 No previous ECG available for comparison
--- NOTE | 2019-09-09 12:32 | PDOC2 ---
OMAYRA ANTONY HUSKER OPERATOR 09/09/19 1232: CARDIAC CONSULT DATE OF CONSULT Date of Consult DATE: 09/09/19 TIME: 12:23 REASON FOR CONSULT Reason for Consult: Atrial flutter REFERRING PHYSICIAN Referring Physician: Lai SOURCE Source: Chart review, Patient HISTORY OF PRESENT ILLNESS HISTORY OF PRESENT ILLNESS This is a pleasant 48 yo female admitted for complains of low BP. Pt is known to our group and was seen over a week ago and was treated for atrial flutter with RVR with underlying COPD and noted ASD. Pt reports that she went to her PCP for a regular check up and was noted to be pale and noted that her BP was low at around 80/60s. Also her HR was elevated which she has noted with some palpitations in the last 2 days. She did have some CP but more from her heart being fast. also her activity tolerance has not improved and still feel SOA with exertion despite being on O2 for her COPD. She does take eliquis for stroke prevention and was taking metoprolol TID. I talked to her in ED and she was sitting up without any discomfort but just felt tired. No fever or chills. PAST MEDICAL HISTORY Past Medical History Cardiovascular: Pulmonary hypertension, atrail flutter, ASD Pulmonary: COPD CENTRAL NERVOUS SYSTEM: Other (No pertinent history) GI: Diverticulosis, GERD Heme/Onc: No pertinent hx Hepatobiliary: No pertinent hx Psych: Depression Musculoskeletal: Osteoarthritis Rheumatologic: No pertinent hx Infectious disease: No pertinent hx ENT: No pertinent hx Renal/: No pertinent hx Endocrine: No pertinent hx Dermatology: No pertinent hx PAST SURGICAL HISTORY Past Surgical History , Hysterectomy, Colon Resection (due to divertiulcitis and fistula repair to vagina), Other ([facility]) FAMILY HISTORY Family History noncontributory to CV SOCIAL HISTORY Social History Smoke: Quit ALCOHOL: none Drugs: None Lives: with Family ALLERGIES ALLERGIES: Coded Allergies: No Known Drug Allergies (Unverified , 03/14/14) ROS Review of System 14 point ROS evaluated with pertinent positives noted per HPI PHYSICAL EXAM General: Alert, Oriented X3, Cooperative, No acute distress HEENT: Atraumatic, Mucous membr. moist/pink Lungs: Other (basilar crackles) Heart: Other (atrial flutter rvr; 3/6 systolic murmur to LLS border) Abdomen: Soft, No tenderness Extremities: No cyanosis, No edema Skin: No breakdown, No significant lesion Neuro: Normal speech, Sensation intact Psych/Mental Status: Mental status NL, Mood NL MUSCULOSKELETAL: Osteoarthritic changes both hands ASSESSMENT/PLAN ASSESSMENT/PLAN 1. Atrial flutter with RVR: paroxysmal by hx 2. ASD: bidirectional predominatly L- to R shunting 3. Chest pain: more from palpitations 4. HTN: on TID metoprolol 5. Mild acute on chronic diastolic CHF 6. Secondary cor pulmonale with pulmonary HTN 7. Hypotension: multifactorial with above 8. COPD: O2 dependent 9. 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 Normocytic anemia: noted - range from prior admission and currently at 8.9 11. Pericardial effusion: per CT, unclear etiology viral component? 12. Leukocytosis: prior noted with fever and treated with vancomycin and zosyn and doxycycline 08/28 to 09/01 Recommendations 1. Digoxin x1. 2. Her current BP is within her baseline prior to BB introduction. Potentially much lower BP is from RVR and metoprolol use rather than her pericardial effusi on. Will delineate further with limited TTE 3. Could hold eliquis in case pericardial tap is warranted. 4. Potential transfer to [facility] as that is the facility her insurance covers for potential ablation pending w/u for leukocytosis. 5. Consider further delineation via cardiac MRI for MATTY anomaly and ASD available at [facility]. NICOLLE PETERSON MD 09/10/19 0746: CARDIAC CONSULT ASSESSMENT/PLAN ASSESSMENT/PLAN Late entry for 09/09/2019. Patient seen and examined. Agree with above nurse practitioner note. Case discussed with [facility]' transfer center and cardiology accepting physician at that site. OMAYRA ANTONY APRN Sep 09, 2019 12:32 NICOLLE PETERSON MD Sep 10, 2019 07:46
[2019-09-09 12:39] LABS: PROTHROMBIN TIME PATIENT 21.3 SEC (11.7-14.0)
--- NOTE | 2019-09-09 12:40 | RAD ---
EXAM: Chest, single view. HISTORY: Shortness of breath. Chest pain. COMPARISON: 07/04/2019. FINDINGS: A frontal view of the chest is obtained. There is suspected partially consolidated left lower lobe infiltrate and a small left pleural effusion. There is no pneumothorax. There is a stable cardiac silhouette. IMPRESSION: Suspected left lower lobe infiltrate and small left pleural effusion. Electronically signed by: Waleska Baez MD (09/09/2019 12:37 PM) [place] [id number]
[2019-09-09 12:41] LABS: CALCIUM 8.7 mg/dL (8.5-10.1); CREATININE 0.8 mg/dL (0.6-1.0); GFR 75.9; POTASSIUM 4.2 mmol/L (3.5-5.1)
[2019-09-09 12:45] LABS: ALBUMIN 2.9 g/dL (3.4-5.0); ALBUMIN/GLOBULIN RATIO 0.6 (1.0-1.7); MAGNESIUM 2.1 mg/dL (1.8-2.4); TOTAL BILIRUBIN 0.7 mg/dL (0.2-1.0); TOTAL PROTEIN 7.8 g/dL (6.4-8.2)
[2019-09-09 12:57] LABS: ANISOCYTOSIS MOD; PLT ESTIMATE ADEQUATE (ADEQUATE); POLYCHROMASIA PRESENT
[2019-09-09 13:00] LABS: D-DIMER 4.57 ug/mlFEU (0.00-0.50)
[2019-09-09] MEDS ORDERED: DIGOXIN IV 500 MCG/2 ML AMPUL. IV ONE (13:00)
[2019-09-09] MEDS ORDERED: CONTRAST GIVEN. MC PRN (13:45)
[2019-09-09] MEDS ORDERED: IOHEXOL 350 MG/ML 100 ML VIAL. IV ONE (13:45)
--- NOTE | 2019-09-09 14:32 | RAD ---
CT ANGIOGRAPHY CHEST INDICATION: Dyspnea, chest pain, tachycardia, elevated d-dimer. Comparison: 08/26/2019. TECHNIQUE: Following the uneventful administration of intravenous contrast, 100 cc Omnipaque 350, axial CT sections were obtained through the lungs and upper abdomen. Multiplanar reconstructions and MIP images were obtained. RS compliance statement: One or more of the following individualized dose reduction techniques were utilized for this examination: 1. Automated exposure control 2. Adjustment of the mA and/or kV according to patient size 3. Use of iterative reconstruction technique FINDINGS: Pulmonary arteries: No evidence of pulmonary thromboembolic disease. Dilated pulmonary trunk measures 35 mm in diameter. Lungs and Airways: No consolidation. Bibasilar dependent, subsegmental, and left basilar relaxation atelectasis. Mild interlobular septal thickening. No abnormality of the central airways. Pleura: Small left pleural effusion. Heart and Mediastinum: The visualized thyroid is normal in size and attenuation. No axillary or supraclavicular lymphadenopathy. No mediastinal, hilar or retrocrural lymphadenopathy. Cardiomegaly. Pericardial effusion measuring 2.1 cm in thickness posteriorly, previously 0.8 cm. Normal caliber thoracic aorta. Abdomen: Limited images through the upper abdomen show no abnormality of the visualized organs. Bones and Soft Tissues: Degenerative changes of the spine. IMPRESSION: 1. No evidence of pulmonary thromboembolic disease. 2. Cardiomegaly with pericardial effusion measuring 2.1 cm in thickness, previously 0.8 cm on 08/26/2019. 3. No confluent consolidation. Interstitial edema. Small left pleural effusion. 4. Dilated pulmonary trunk, which can be seen with pulmonary hypertension. Electronically signed by: Aj Franklin MD (09/09/2019 2:30 PM) [facility] [place]
[2019-09-09 14:36] VITALS: BP 109/70
[2019-09-09 14:55] LABS: BILIRUBIN,URINE SMALL (NEG); CLARITY,URINE CLEAR; COLOR,URINE AMBER; NITRITE,URINE NEGATIVE (NEG); PROTEIN,URINE 30 mg/dL (NEG-TRACE)
[2019-09-09 15:14] LABS: HYALINE CASTS, URINE FEW /HPF; SQUAMOUS EPITHELIAL CELL,UR MOD /LPF
[2019-09-09 15:15] LABS: BACTERIA,URINE 0 /HPF (0-FEW); RBC,URINE 0 /HPF (0-2); WBC,URINE OCC /HPF (0-4)
--- NOTE | 2019-09-09 15:52 | CARD ---
MR#: [id number] Date of Study: 09/09/2019 Ordering Physician: OMAYRA ANTONY, Referring Physician: OMAYRA ANTONY Tech: Chasidy Syed RDCS APPROVED REPORT EXAM: Two-dimensional and M-mode echocardiogram with Doppler and color Doppler. Other Information Quality : Good INDICATION Pericardial Effusion LEFT VENTRICLE The left ventricular systolic function is normal and the ejection fraction is within normal range. Th e Ejection Fraction is 55-60%. There is normal LV segmental wall motion. RIGHT VENTRICLE The right ventricle is moderately dilated. The right ventricular systolic function is normal. ATRIA The left atrium size is normal. The right atrium is moderately dilated. The interatrial septum is int act with no evidence for an atrial septal defect or patent foramen ovale as noted on 2-D or Doppler i maging. GREAT VESSELS The aortic root is normal in size. The IVC is enlarged and collapses <50% with inspiration. PERICARDIAL EFFUSION There is a small to moderate circumferential pericardial effusion. There is no evidence of cardiac ta mponade on this limited study. Critical Notification Critical Value: No <Conclusion> The left ventricular systolic function is normal and the ejection fraction is within normal range. Th e Ejection Fraction is 55-60%. There is normal LV segmental wall motion. The right ventricle is moderately dilated. The right atrium is moderately dilated. The IVC is enlarged and collapses <50% with inspiration. There is a small to moderate circumferential pericardial effusion. There is no evidence of cardiac ta mponade on this limited study. Signed by : Raghavendra Weems, Electronically Approved : 09/09/2019 15:52:11
== END 2019-09-09 15:50 | disposition short-term general hospital (02) ==
LOC: ER 11:49
DX: J44.9 Chronic obstructive pulmonary disease, unspecified (principal); I31.3 Pericardial effusion (noninflammatory); R07.2 Precordial pain; I48.3 Typical atrial flutter; D64.9 Anemia, unspecified; Q21.1 Atrial septal defect; I95.9 Hypotension, unspecified; R53.1 Weakness
CPT/HCPCS: 36415; 71045; 71275; 80053; 81001; 82550; 83605; 83690; 83735; 83880; 84443; 84484; 85025; 85379; 85610; 87040; 93005; 93308; 93320; 93325; 96361; 96374; 96375; 99291; 99292; J1160; J2930; J7040; Q9967